=== PATIENT | male | born 1975 | race Caucasian/White ===

== ENCOUNTER 2016-10-24 20:09 | Emergency (ER) | payer OTHER ==
[~2016-10-24] VITALS: Ht 170.2 cm; Wt 86.5 kg
[~2016-10-24 20:09] MED LIST: ATOR-24 PO; METO25TA56 PO
[2016-10-24 20:15] VITALS: TEMP 37; Ht 170.2 cm; Wt 86.5 kg
[2016-10-24] MEDS ORDERED: OXYCODONE HCL IR 5 MG TAB (IMMEDIATE RELEASE) PO STA (22:19)
[2016-10-24] MEDS ORDERED: OXYCODONE IR HOME PACK PO ONE (22:30)
[2016-10-24] MEDS ORDERED: SEPTRA DS HOME PACK 1 EA VIAL PO ONE (22:30)
[2016-10-24] MEDS ORDERED: XYLOCAINE 1%/SOD BICARB 20 ML VIAL INFIL ONE (22:30)
[2016-10-24] MEDS ORDERED: CEPHALEXIN 500MG HOME PACK 1 EA BTL PO ONE (22:30)
[2016-10-24] MEDS ORDERED: CEPH500C2 PO (22:47)
[2016-10-24] MEDS ORDERED: SULF800T23 PO (22:47)
--- NOTE | 2016-10-24 23:24 | EMERGENCY ROOM VISIT NOTE ---
History First contact with patient: 22:16 Chief Complaint: LEG PAIN,LEG INJURY Stated Complaint: LARGE PAINFUL LUMP IN GROIN History of Present Illness The patient is a 41 year old male who presents to the Emergency Room with complaints of left groin pain and swelling for the past few days. Patient denies penile Pain, testicular pain, fever, chills, nausea, vomiting, diarrhea, abdominal pain, back pain, risk for STIs, lightheadedness or dizziness. No history of MRSA. No IV drug abuse. Review of Systems See HPI for pertinent positives & negatives. A total of 6 systems reviewed and were otherwise negative. Past Medical/Surgical History Medical Problems: (1) Acute epididymitis (2) Acute urinary tract infection (3) Alcohol abuse (4) Back pain (5) Benign hypertension (6) Bipolar disorder (7) Calculus of kidney and ureter (8) Dehydration (9) Dizziness (10) Epididymal cyst (11) Epididymitis (12) Flank pain (13) Gastroesophageal reflux disease (14) Headache (15) Headache (16) Hypokalemia (17) Insertion of stent into ureter (18) Kidney cysts (19) Lung mass (20) Migraine (21) Palpitations (22) Strain of thoracic region (23) Testicular pain (24) Testicular pain (25) Tobacco user (26) Ulcer (27) Vomiting (28) Vomiting Family History Heart disease Social History Smoking Status: Current Every Day Smoker Alcohol Use: occasionally Drug Use: none Marital Status: Housing Status: lives alone Occupation Status: disabled Current/Historical Medications Scheduled Aspirin (Aspirin Ec), 81 MG PO DAILY Atorvastatin (Atorvastatin Calcium), 40 MG PO DAILY Cephalexin Monohydrate (Keflex), 500 MG PO QID Metoprolol Succinate (Metoprolol Succinate ER), 25 MG PO DAILY Sulfa/Trimethoprim (Bactrim Ds 800MG/160MG), 1 TAB PO BID Allergies Coded Allergies: Naproxen (Verified Allergy, Intermediate, hives, 10/24/16) Gabapentin (Verified Allergy, Mild, hives, 10/24/16) Acellular Pertussis (Unverified Allergy, Unknown, CELLULITIS, 10/24/16) Aluminum Phosphate (Unverified Allergy, Unknown, CELLULITIS, 10/24/16) Diphtheria Toxoid (Unverified Allergy, Unknown, CELLULITIS, 10/24/16) Penicillins (Verified Allergy, Unknown, RASH, 10/24/16) Phenoxyethanol (Unverified Allergy, Unknown, CELLULITIS, 10/24/16) Tetanus Toxoid (Unverified Allergy, Unknown, CELLULITIS, 10/24/16) Tramadol (Verified Allergy, Unknown, HIVES, 10/24/16) Physical Exam Vital Signs Date Time Temp Pulse Resp B/P Pulse Ox O2 Delivery O2 Flow Rate FiO2 10/24/16 22:15 76 18 127/83 97 Room Air 10/24/16 20:15 37.0 90 16 149/101 97 Room Air Physical Exam VITALS: Vitals are noted on the nurse's note and reviewed by myself. Vital signs stable. GENERAL: Pleasant male, in no acute distress, nondiaphoretic, well-developed well-nourished. SKIN: Capillary reflex less than 2 seconds. HEENT: Normocephalic. PERRLA. EOMI. Nares patent. Mucous membranes moist. Neck is supple without nuchal rigidity. HEART: Regular rate and rhythm without murmurs gallops or rubs. LUNGS: Clear to auscultation bilaterally without wheezes, rales or rhonchi. No retractions or accessory muscle use. ABDOMEN: Positive bowel sounds x 4. Normal tympanic percussion. Soft, nontender, without masses or organomegaly. Vides sign negative. No guarding or rebound tenderness. exam: Left groin with palpable abscess and surrounding cellulitis 2 cm x 3 cm without testicular or penile pain or perineal infection. Tenant Coordinator present MUSCULOSKELETAL: No gross musculoskeletal defects. No pedal edema. No calf tenderness. NEURO: Patient was alert and oriented to person place and time. Normal sensation to light and sharp touch. No focal neurological deficits. Medical Decision & Procedures Medications Administered Medications (Trade) Dose Ordered Sig/Katie Route Start Time Stop Time Status Last Admin Dose Admin Cephalexin Monohydrate (Keflex 500MG Home Pack) 1 homepack NOW ONCE PO 10/24/16 22:30 10/24/16 22:31 DC 10/24/16 22:30 1 HOMEPACK Trimethoprim/ Sulfamethoxazole (Sulfameth/ Trimeth Ds 800/ 160MG Home Pack) 1 homepack UD ONCE PO 10/24/16 22:30 10/24/16 22:31 DC 10/24/16 22:29 1 HOMEPACK Oxycodone HCl (Roxicodone Immediate Rel 5MG Home Pack) 1 homepack UD ONCE PO 10/24/16 22:30 10/24/16 22:31 DC 10/24/16 22:30 1 HOMEPACK Oxycodone HCl (Roxicodone Immediate Rel Tab) 5 mg NOW STAT PO 10/24/16 22:19 10/24/16 22:21 DC 10/24/16 22:29 5 MG Procedure Incision & Drainage Indication: Abscess. Location: left groin Verbal consent was obtained after the risks and benefits were explained, including but not limited to bleeding, scarring, infection, pain, and bone/joint /nerve damage. At this time, the risks of the procedure are less than the risks of NOT performing the procedure. A time out was taken and the correct patient and site identified. The skin was prepped with betadine and a sterile field set. The wound was anesthetized with 3 ml of 1% lidocaine without epinephrine. The abscess cavity was entered with a number 11 blade and purulent material expressed. Copious irrigation was performed using NSS. The wound was explored for foreign bodies and none found. Debridement was not performed. Packing placed and a sterile dressing applied. Detailed wound care instructions and signs and symptoms of worsening infection reviewed with the patient. No complications and the patient tolerated the procedure well. ED Course Prior records reviewed and summarized as above. Triage Nursing notes reviewed. The patient's history was concerning for swelling and redness of the skin. Differential diagnosis: Etiologies such as cellulitis, abscess, MRSA infection, DVT, necrotizing fasciitis, dermatitis, drug eruption, as well as others were entertained.. Physical examination: The physical examination was consistent with cellulitis ER treatment provided: BD, Keflex On reassessment the patient felt better. Diagnostics interpreted by me: The labs revealed wound culture pending This appears to be isolated abscess with surrounding cellulitis. By the evaluation outlined above emergent etiologies such as necrotizing fasciitis, DVT, as well as others were deemed relatively unlikely. I&D as above. Patient was advised to return to the ER 2 days for repacking. He is advised to return to the immediate for fevers, spreading redness, worsening signs or symptoms or as needed. The pt informed about the findings as listed above. All questions were answered and pleased with the treatment. Return instructions were outlined and the patient was discharged in stable condition. Outpatient prescription management: BD, Keflex Referral: The patient was referred back to ER or primary care physician for follow-up in 2 to 3 days for a recheck of the current condition. Medical Decision as above Impression Primary Impression: Abscess of left groin Departure Information Dispostion Home / Self-Care Condition GOOD Prescriptions Sulfa/Trimethoprim (Bactrim Ds 800MG/160MG) Tab 1 TAB PO BID for 9 Days, #18 TAB Prov: Gail Nunez .ARGENIS 10/24/16 Cephalexin Monohydrate (KEFLEX) 500 Mg Cap 500 MG PO QID for 9 Days, #36 CAP Prov: Gail Nunez .ARGENIS 10/24/16 Forms HOME CARE DOCUMENTATION FORM, IMPORTANT VISIT INFORMATION Patient Instructions [facility], ED Abscess IandD Additional Instructions Leave inner packing in place. Frequent replace the outer packing. Cephalexin(Keflex) 500mg: Take one pill four times daily for 10 days for your skin infection. All antibiotics can cause diarrhea. If this occurs and you feel worse or it does not resolve in 1-2 days follow up with your doctor or return to the Emergency Department as this could be signs of serious underlying problems. Any medication can cause an allergic reaction, stop the pills immediately and return to the ER for rash, hives, breathing difficulties, or swelling. Trimethoprim-Sulfamethoxazole(Bactrim DS): Take one pill twice daily for 10 days for your skin infection. All antibiotics can cause diarrhea. If this occurs and you feel worse or it does not resolve in 1-2 days follow up with your doctor or return to the Emergency Department as this could be signs of serious underlying problems. Any medication can cause an allergic reaction, stop the pills immediately and return to the ER for rash, hives, breathing difficulties, or swelling. Ibuprofen(Motrin, Advil) may be used for fever or pain. Use 600mg every six hours as needed. Take with food. Avoid using more than 2400mg in a 24 hour period. Do not use 2400mg per day for more than three consecutive days without physician direction. Prolonged inappropriate use can lead to stomach upset or ulcers. (AND/OR) Acetaminophen(Tylenol) may be used for fever or pain. Use 1000mg every six hours as needed. Avoid using more than 3000mg in a 24 hour period. Rest and drink plenty of fluids. Continue current medications. Return to the ER for severe pain, persistent fevers, spreading redness, or any worsening of your condition. Follow up in the ER within 2-3 days for a recheck of the current condition and repacking of your abscess.
[2016-10-24 23:38] VITALS: BP 127/94; PULSE 78; O2SAT 98
--- NOTE | 2016-10-30 15:55 | Pharmacy Progress Note ---
ED Pharmacist Progress Note Date of Service: Oct 30, 2016. Patient's L groin abscess culture from 10/24/16 is growing 2 organisms : Group B beta-strep and Prevotella biva. On 10/24 the I&D of abscess was performed and patient was discharged with Rx's for Bactrim DS and Keflex for 9 days. He returned on 10/27 for a wound recheck - and the wound was reported to be healing well, was repacked and redressed and he was to return again in 2-3 days. Based upon the culture results it is possible that the current ABX therapy is inadequate. Group B beta-strep is intrinsically resistant to SMX-TMP but could be sensitive to the Keflex, although our lab does not report sensitivities to 1st or second gen cephs. The Prevotella is an anaerobe that would be resistant to 1st generation cephalosporins. This organism would be covered well by Augmentin however the patient has a penicillin allergy. Clindamycin would be an acceptable alternative. I called (and left a message for the patient to call back for a clinical checkup via phone. If he is not doing better clinically would recommend change ABX to Clindamycin + Keflex or possibly Clindamycin + Levofloxacin. It is unlikely the Bactrim is providing any coverage for the two cultured organisms.
--- NOTE | 2016-10-31 12:18 | Pharmacy Progress Note ---
ED Pharmacist Culture FollowUp Date of Service: Oct 31, 2016. Called again and left a message ([phone]) as patient has not returned for f /u. A f/u clinical checkup via phone is desired to determine if change in abx therapy should be considered. Oct 30, 2016. Patient's L groin abscess culture from 10/24/16 is growing 2 organisms : Group B beta-strep and Prevotella biva. On 10/24 the I&D of abscess was performed and patient was discharged with Rx's for Bactrim DS and Keflex for 9 days. He returned on 10/27 for a wound recheck - and the wound was reported to be healing well, was repacked and redressed and he was to return again in 2-3 days. Based upon the culture results it is possible that the current ABX therapy is inadequate. Group B beta-strep is intrinsically resistant to SMX-TMP but could be sensitive to the Keflex, although our lab does not report sensitivities to 1st or second gen cephs. The Prevotella is an anaerobe that would be resistant to 1st generation cephalosporins. This organism would be covered well by Augmentin however the patient has a penicillin allergy. Clindamycin would be an acceptable alternative. I called (and left a message for the patient to call back for a clinical checkup via phone. If he is not doing better clinically would recommend change ABX to Clindamycin + Keflex or possibly Clindamycin + Levofloxacin. It is unlikely the Bactrim is providing any coverage for the two cultured organisms.
--- NOTE | 2016-11-01 16:02 | Pharmacy Progress Note ---
ED Pharmacist Culture FollowUp Date of Service: Nov 01, 2016. I spoke with the patient on the phone today. He states that the wound packing came out on it's own so he did not return for f/u ED visit. He states the wound is healing nicely and is not concerned. He is still taking the prescribed antibiotics. No action required at this time. Oct 31, 2016. Called again and left a message ([phone]) as patient has not returned for f /u. A f/u clinical checkup via phone is desired to determine if change in abx therapy should be considered. Oct 30, 2016. Patient's L groin abscess culture from 10/24/16 is growing 2 organisms : Group B beta-strep and Prevotella biva. On 10/24 the I&D of abscess was performed and patient was discharged with Rx's for Bactrim DS and Keflex for 9 days. He returned on 10/27 for a wound recheck - and the wound was reported to be healing well, was repacked and redressed and he was to return again in 2-3 days. Based upon the culture results it is possible that the current ABX therapy is inadequate. Group B beta-strep is intrinsically resistant to SMX-TMP but could be sensitive to the Keflex, although our lab does not report sensitivities to 1st or second gen cephs. The Prevotella is an anaerobe that would be resistant to 1st generation cephalosporins. This organism would be covered well by Augmentin however the patient has a penicillin allergy. Clindamycin would be an acceptable alternative. I called (and left a message for the patient to call back for a clinical checkup via phone. If he is not doing better clinically would recommend change ABX to Clindamycin + Keflex or possibly Clindamycin + Levofloxacin. It is unlikely the Bactrim is providing any coverage for the two cultured organisms.
[2017-07-03] MEDS ORDERED: CLON0.5T3 PO (16:25)
[2017-07-03] MEDS ORDERED: DXY100 PO (16:25)
[2017-07-03] MEDS ORDERED: BUSP15TA70 PO (16:25)
[2017-07-03] MEDS ORDERED: NICO14DI5 TD (16:25)
== END 2016-10-24 22:38 | disposition home or self-care (01) ==
LOC: C.EDB 20:10 → C.EDC 22:38
DX: L02.214 Cutaneous abscess of groin (principal); F17.200 Nicotine dependence, unspecified, uncomplicated; I10 Essential (primary) hypertension; F31.9 Bipolar disorder, unspecified; K21.9 Gastro-esophageal reflux disease without esophagitis; Z79.82 Long term (current) use of aspirin

== ENCOUNTER 2016-10-27 04:56 | Emergency (ER) | payer OTHER ==
[~2016-10-27] VITALS: Ht 170.2 cm; Wt 85.6 kg
[~2016-10-27 04:56] MED LIST changes: -ATOR-24 PO; +CEPH500C2 PO; -METO25TA56 PO; +SULF800T23 PO
[2016-10-27 04:59] VITALS: TEMP 36.5; Ht 170.2 cm; Wt 85.6 kg
--- NOTE | 2016-10-27 05:12 | EMERGENCY ROOM VISIT NOTE ---
ED Visit Note First contact with patient: 05:01 CHIEF COMPLAINT: Wound check HISTORY OF PRESENT ILLNESS: This 41-year-old patient presents to the emergency department for a recheck of left groin abscess that was I&D the other day by myself and started on antibiotics. Overall it is healing nicely. Previous care outlined has been followed without difficulty. REVIEW OF SYSTEMS: A 6 system review of systems was completed with positives and pertinent negatives listed in the HPI. ALLERGIES: Tetanus, reviewed MEDICATIONS: Reviewed PMH: Unchanged from previous visit.Medical Problems: (1) Acute epididymitis Status: Resolved (2) Acute urinary tract infection Status: Resolved (3) Alcohol abuse Status: Resolved (4) Back pain Status: Resolved (5) Benign hypertension Status: Chronic (6) Bipolar disorder Status: Chronic (7) Calculus of kidney and ureter Status: Resolved (8) Dehydration Status: Resolved (9) Dizziness Status: Resolved (10) Epididymal cyst Status: Resolved (11) Epididymitis Status: Resolved (12) Flank pain Status: Resolved (13) Gastroesophageal reflux disease Status: Chronic (14) Headache Status: Resolved (15) Headache Status: Resolved (16) Hypokalemia Status: Resolved (17) Insertion of stent into ureter Permanent Comment: L ureteral stent Dr. Guajardo 03/21/13 Status: Resolved (18) Kidney cysts Status: Resolved (19) Lung mass Permanent Comment: CT chest [facility] 03/01/13 3 mm RLL and 5 mm LLL nodules f/u recommended Status: Chronic (20) Migraine Status: Resolved (21) Palpitations Status: Chronic (22) Strain of thoracic region Status: Resolved (23) Testicular pain Status: Resolved (24) Testicular pain Status: Resolved (25) Tobacco user Status: Chronic (26) Ulcer Status: Resolved (27) Vomiting Status: Resolved (28) Vomiting Status: Resolved PHYSICAL EXAM: Vital Signs reviewed, see Nurse's notes. Patient is afebrile, vital signs stable. GENERAL: White male, awake, alert, well appearing, no acute distress SKIN: Inspection of the left groin reveals healing abscess was IND. MUSCULOSKELETAL: Left leg groin area without surrounding erythema or edema NEURO: No sensory or motor deficits noted. EMERGENCY DEPARTMENT COURSE AND DECISION MAKING: I examined the patient. The patient presented with an isolated wound as above. . The wound is healing well. ER Treatment: The wound was repacked and redressed. Patient was advised to return in 2-3 days for wound repacking and reevaluation. He was advised to continue the antibiotics. Discharge instructions reviewed. Discharged in stable condition. DIAGNOSIS: Healing left groin abscess TREATMENT PLAN: As below Problem List Medical Problems: (1) Acute epididymitis Status: Resolved (2) Acute urinary tract infection Status: Resolved (3) Alcohol abuse Status: Resolved (4) Back pain Status: Resolved (5) Benign hypertension Status: Chronic (6) Bipolar disorder Status: Chronic (7) Calculus of kidney and ureter Status: Resolved (8) Dehydration Status: Resolved (9) Dizziness Status: Resolved (10) Epididymal cyst Status: Resolved (11) Epididymitis Status: Resolved (12) Flank pain Status: Resolved (13) Gastroesophageal reflux disease Status: Chronic (14) Headache Status: Resolved (15) Headache Status: Resolved (16) Hypokalemia Status: Resolved (17) Insertion of stent into ureter Permanent Comment: L ureteral stent Dr. Guajardo 03/21/13 Status: Resolved (18) Kidney cysts Status: Resolved (19) Lung mass Permanent Comment: CT chest [facility] 03/01/13 3 mm RLL and 5 mm LLL nodules f/u recommended Status: Chronic (20) Migraine Status: Resolved (21) Palpitations Status: Chronic (22) Strain of thoracic region Status: Resolved (23) Testicular pain Status: Resolved (24) Testicular pain Status: Resolved (25) Tobacco user Status: Chronic (26) Ulcer Status: Resolved (27) Vomiting Status: Resolved (28) Vomiting Status: Resolved Current/Historical Medications Scheduled Aspirin (Aspirin Ec), 81 MG PO DAILY Atorvastatin (Atorvastatin Calcium), 40 MG PO DAILY Cephalexin Monohydrate (Keflex), 500 MG PO QID Metoprolol Succinate (Metoprolol Succinate ER), 25 MG PO DAILY Sulfa/Trimethoprim (Bactrim Ds 800MG/160MG), 1 TAB PO BID Allergies Coded Allergies: Naproxen (Verified Allergy, Intermediate, hives, 10/27/16) Gabapentin (Verified Allergy, Mild, hives, 10/27/16) Acellular Pertussis (Unverified Allergy, Unknown, CELLULITIS, 10/27/16) Aluminum Phosphate (Unverified Allergy, Unknown, CELLULITIS, 10/27/16) Diphtheria Toxoid (Unverified Allergy, Unknown, CELLULITIS, 10/27/16) Penicillins (Verified Allergy, Unknown, RASH, 10/27/16) Phenoxyethanol (Unverified Allergy, Unknown, CELLULITIS, 10/27/16) Tetanus Toxoid (Unverified Allergy, Unknown, CELLULITIS, 10/27/16) Tramadol (Verified Allergy, Unknown, HIVES, 10/27/16) Vital Signs Date Time Temp Pulse Resp B/P Pulse Ox O2 Delivery O2 Flow Rate FiO2 10/27/16 04:59 36.5 82 16 136/98 95 Room Air Departure Information Referrals No Doctor, Assigned (PCP) Patient Instructions [facility]
[2016-10-27 05:22] VITALS: BP 144/92; PULSE 80; O2SAT 95
[2017-07-03] MEDS ORDERED: DXY100 PO (16:25)
[2017-07-03] MEDS ORDERED: NICO14DI5 TD (16:25)
[2017-07-03] MEDS ORDERED: BUSP15TA70 PO (16:25)
[2017-07-03] MEDS ORDERED: CLON0.5T3 PO (16:25)
== END 2016-10-27 05:22 | disposition home or self-care (01) ==
LOC: C.EDB 04:57 → C.EDA 05:22
DX: L02.214 Cutaneous abscess of groin (principal); I10 Essential (primary) hypertension; F31.9 Bipolar disorder, unspecified; K21.9 Gastro-esophageal reflux disease without esophagitis; Z79.82 Long term (current) use of aspirin

== ENCOUNTER → 2017-01-10 | Outpatient (CLI) | payer OTHER ==
[~2017-01-10] MED LIST changes: +ASPI81TA28 PO; +AZIT250T PO; +BUSP15TA70 PO; -CEPH500C2 PO; +CIPR-255 PO; +CLON0.5T3 PO; +DXY100 PO; +LPT40 PO; +METR-163 PO; +NICO14DI5 TD; +NTRGSL/4 UT; +PRED50TA PO; -SULF800T23 PO; +TPRSR/25 PO
--- NOTE | 2017-01-10 13:58 | DIAGNOSTIC IMAGING REPORT ---
CERVICAL SPINE SERIES INCLUDING FLEXION AND EXTENSION VIEWS (7 VIEWS) CLINICAL HISTORY: NECK PAIN COMPARISON STUDY: No previous studies for comparison. FINDINGS: The prevertebral soft tissues are normal. No fractures or subluxations are visualized. There are mild degenerative changes at the C6-7 level. There is no instability on flexion or extension. IMPRESSION: Mild degenerative changes the C6-7 level. No fractures or subluxations. No evidence of instability on flexion or extension. Electronically signed by: Rishi Ledezma M.D. 01/10/2017 1:56 PM Dictated Date/Time: 01/10/2017 1:55 PM
== END | disposition home or self-care (01) ==
LOC: C.RDSM 13:02
PROVIDERS: ATTEND Orthopaedic Surgery Sports Medicine
DX: M25.511 Pain in right shoulder (principal); M25.512 Pain in left shoulder; M47.812 Spondylosis without myelopathy or radiculopathy, cervical region

== ENCOUNTER → 2017-01-16 | Outpatient (CLI) | payer OTHER ==
--- NOTE | 2017-01-16 19:38 | DIAGNOSTIC IMAGING REPORT ---
MRI OF THE CERVICAL SPINE WITHOUT CONTRAST CLINICAL HISTORY: Neck pain with left-sided radiculopathy. COMPARISON: Cervical spine CT March 20, [address] May 22, 2015. TECHNIQUE: Utilizing a 1.5 Michelle magnet and dedicated coil, multiplanar, multiecho imaging of the cervical spine was performed without IV contrast. FINDINGS: There is straightening of the normal cervical lordosis. Vertebral body heights are maintained. There is no suspicious marrow replacement. There are hemangiomas within the T2 and T3 vertebral bodies. Cervical cord signal and caliber are normal although this exam is mildly compromised by motion artifact. There is no intracanalicular mass or fluid collection. Paravertebral soft tissues are unremarkable. C2-C3: The central canal and neural foramen are patent. C3-C4: The central canal and neural foramen are patent. C4-C5: The central canal and neural foramen are patent. C5-C6: The central canal and neural foramen are patent. C6-C7: Disc bulge with small central disc protrusion is noted. There is mild narrowing of the central canal. The right neural foramen is patent. There is moderate to severe narrowing of the left neural foramen due to disc osteophyte complex and uncovertebral hypertrophy. C7-T1: Central canal and neural foramen are patent. IMPRESSION: 1. Disc bulge with small central disc protrusion at C6-C7 that results in mild narrowing of the central canal. Moderate to severe left neural foraminal narrowing at C6-C7 due to disc osteophyte complex and uncovertebral hypertrophy. 2. Otherwise, unremarkable MRI of the cervical spine. Electronically signed by: Rashad Sotelo M.D. 01/16/2017 7:36 PM Dictated Date/Time: 01/16/2017 7:31 PM
== END ==
LOC: C.MRI 17:35
PROVIDERS: ATTEND Orthopaedic Surgery Sports Medicine
DX: M54.2 Cervicalgia (principal); M54.10 Radiculopathy, site unspecified

== ENCOUNTER 2017-01-23 04:51 | Emergency (ER) | payer OTHER ==
[~2017-01-23] VITALS: Ht 170.2 cm; Wt 80.2 kg
[2017-01-23 04:54] VITALS: Ht 170.2 cm; Wt 80.2 kg
[2017-01-23] MEDS ORDERED: ONDANSETRON 4MG OD TAB PO ONE (05:30)
[2017-01-23] MEDS ORDERED: DEXAMETHASONE SOD INJ 10 MG/ML VIAL IM ONE (05:30)
[2017-01-23] MEDS ORDERED: HYDROmorphone INJ 1 MG/ML SYR IM ONE (05:30)
[2017-01-23] MEDS ORDERED: PRED50TA PO (06:02)
--- NOTE | 2017-01-23 06:02 | EMERGENCY ROOM VISIT NOTE ---
ED Visit Note First contact with patient: 05:00 Chief Complaint: Neck, Back, LEFT Shoulder and Arm Pain History of Present Illness: Patient is a 41-year-old male who presents to the emergency department this morning for evaluation of his neck pain and LEFT shoulder and arm pain. He reports a history of ongoing back pain issues for which she follows with Dr. Eugene. He reports having an MRI performed 1 week ago. He is scheduled to see a neurosurgeon next for ongoing symptoms. 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 He reports pain that radiates down the LEFT arm. He reports pain with range of motion. He denies any trauma to the neck. Patient rates his current discomfort as a 10/10. He is tried nothing [id number]-[id number] for symptoms to this point. He denies any headaches, dizziness, lightheadedness, nausea, vomiting, elbow pain, forearm pain, or wrist pain. Medications: Reviewed and discussed with the patient. Allergies: Aluminum phosphate, diphtheria toxoid, naproxen, tetanus toxoid, acellular pertussis, gabapentin, tramadol, Phenoxyethanol, Penicillins PMH: As above SHx: Patient is a 41-year-old male who lives locally. ROS: All pertinent positive and negative review of systems are appropriately documented in the History of Present Illness. Physical Exam: VITAL SIGNS - Vital signs and nursing notes were reviewed. GENERAL - 41-year-old male appearing his stated age who is in no acute distress. Communicates well with provider and answers questions appropriately. HEAD - Normocephalic, Atraumatic. No Vasquez's Sign or Raccoon's Eyes. No depressed skull fractures palpable. EYES - PERRL with EOMI bilaterally. Sclera anicteric. Palpebral conjunctiva pink and moist with no injection noted. EARS - No deformities of external structures noted on gross examination bilaterally. No pain elicited with palpation of the tragus bilaterally. External auditory canals without discharge or otorrhea. Tympanic membranes pearly waller without retraction or bulging. NOSE - Midline and without cyanosis. No epistaxis or purulent drainage noted. Septum midline without deviation or septal hematoma noted. MOUTH/OROPHARYNX - Without perioral cyanosis. Buccal mucosa pink and moist and without leukoplakia. Tongue midline with equal elevation of palate bilaterally. No tonsillar hypertrophy, erythema, or exudates noted. NECK - Neck with limited ROM secondary to patient discomfort. No cervical spinous process tenderness to palpation. Moderate paraspinal muscle tenderness to palpation to the LEFT sided musculature. No lymphadenopathy noted. Moderate pain through range of motion appreciated. Mild pain elicited with axial load applied to the head. EXTREMITIES - +4/5 strength appreciated LEFT versus right of the upper extremities. +3/5 radial pulses palpated throughout. FROM with no tremors, fasciculations, or clonus noted on PROM throughout. NEUROLOGIC - Cranial nerves II through XII grossly intact. Sensory intact to light and sharp touch throughout. Patient able to perform rapid alternating movements appropriately. PSYCH - A&Ox3 and cooperates fully with examiner. Pt is very pleasant and interacts well with examiner. ED Course: Patient was seen and evaluated by myself. Outpatient MRI results ordered one week ago were reviewed. I had a lengthy discussion with the patient regarding symptoms and management. Patient was provided 1 mg Dilaudid, 10 mg Decadron, and 4 mg Zofran for his pain. He was made aware that he would not receive any narcotic prescriptions from the emergency department. He is currently following with orthopedic surgery. He was encouraged to contact their office later this morning for a prescription at their discretion. He was placed on prednisone for home. The patient was educated on worrisome symptoms for return visit to the emergency department. Patient discharged home in good condition. In the evaluation and treatment of this patient, the following differential diagnoses were considered: Musculoskeletal Strain, Discitis, Cervical Spine Fracture, Cervical Spine Dislocation, Cervical Spine Subluxation, Cervical Spondylosis, Fibromyalgia, Osteoarthritis, Polymyalgia Rheumatica, Psychogenic Pain Disorder, Tumor of Soft Tissue or Spine. Impression: Acute exacerbation of chronic back pain Discharge Instructions: You have been treated in the Emergency Department for Neck Pain. You have received pain medicine in the emergency department which impairs your ability to operate a vehicle. It is illegal for you to drive after receiving these medicines. You have been prescribed Prednisone 50 mg to be taken orally once a day for the next 4 days. This is an anti-inflammatory medicine to be used to help minimize your symptoms. You should take the COMPLETE course of the medication. For pain control, you can use the following [id number]-lcv-[id number] medicines (if >12 yo): - Regular strength (325mg/tab) Tylenol (acetaminophen) 2 tabs every 4-6 hours as needed. Do not exceed 12 tablets in a 24 hour period. Avoid taking more than 4 grams (4000 mg) of Tylenol per day. This includes any other sources of acetaminophen you may take on a regular basis. - Regular strength (200 mg/tab) Advil (ibuprofen) 1-2 tabs every 4-6 hours as needed. Do not exceed a dose of 3200 mg per day. If this is an acute injury, ice can be applied to the area of pain for the first 3 days to help decrease pain and inflammation. After the first 3 days, a heating pad can be used over the area for continued soothing relief. Contact your orthopedic provider later today for recheck. Return to the Emergency Department if your current symptoms worsen despite treatment course outlined above, or if you develop any of the following symptoms : intractable pain despite aforementioned treatment course, facial droop, slurred speech, unilateral weakness, or worsening of her current symptoms. Problem List Medical Problems: (1) Acute epididymitis Status: Resolved (2) Acute urinary tract infection Status: Resolved (3) Alcohol abuse Status: Resolved (4) Back pain Status: Resolved (5) Benign hypertension Status: Chronic (6) Bipolar disorder Status: Chronic (7) Calculus of kidney and ureter Status: Resolved (8) Dehydration Status: Resolved (9) Dizziness Status: Resolved (10) Epididymal cyst Status: Resolved (11) Epididymitis Status: Resolved (12) Flank pain Status: Resolved (13) Gastroesophageal reflux disease Status: Chronic (14) Headache Status: Resolved (15) Headache Status: Resolved (16) Hypokalemia Status: Resolved (17) Insertion of stent into ureter Permanent Comment: L ureteral stent Dr. Guajardo 03/21/13 Status: Resolved (18) Kidney cysts Status: Resolved (19) Lung mass Permanent Comment: CT chest [facility] 03/01/13 3 mm RLL and 5 mm LLL nodules f/u recommended Status: Chronic (20) Migraine Status: Resolved (21) Palpitations Status: Chronic (22) Strain of thoracic region Status: Resolved (23) Testicular pain Status: Resolved (24) Testicular pain Status: Resolved (25) Tobacco user Status: Chronic (26) Ulcer Status: Resolved (27) Vomiting Status: Resolved (28) Vomiting Status: Resolved Current/Historical Medications Scheduled Aspirin (Aspirin Ec), 81 MG PO DAILY Atorvastatin (Atorvastatin Calcium), 40 MG PO DAILY Metoprolol Succinate (Metoprolol Succinate ER), 25 MG PO DAILY Prednisone (Prednisone), 50 MG PO DAILY Allergies Coded Allergies: Naproxen (Verified Allergy, Intermediate, hives, 01/23/17) Gabapentin (Verified Allergy, Mild, hives, 01/23/17) Acellular Pertussis (Unverified Allergy, Unknown, CELLULITIS, 01/23/17) Aluminum Phosphate (Unverified Allergy, Unknown, CELLULITIS, 01/23/17) Diphtheria Toxoid (Unverified Allergy, Unknown, CELLULITIS, 01/23/17) Penicillins (Verified Allergy, Unknown, RASH, 01/23/17) Phenoxyethanol (Unverified Allergy, Unknown, CELLULITIS, 01/23/17) Tetanus Toxoid (Unverified Allergy, Unknown, CELLULITIS, 01/23/17) Tramadol (Verified Allergy, Unknown, HIVES, 01/23/17) Vital Signs Date Time Temp Pulse Resp B/P Pulse Ox O2 Delivery O2 Flow Rate FiO2 01/23/17 06:40 36.5 96 20 145/90 96 01/23/17 04:54 36.5 96 20 151/102 96 Room Air Medications Administered Medications (Trade) Dose Ordered Sig/Katie Route Start Time Stop Time Status Last Admin Dose Admin Hydromorphone HCl (Dilaudid Inj) 1 mg NOW ONCE IM 01/23/17 05:30 01/23/17 05:31 DC 01/23/17 05:43 1 MG Dexamethasone Sodium Phosphate (Decadron Inj) 10 mg NOW ONCE IM 01/23/17 05:30 01/23/17 05:31 DC 01/23/17 05:42 10 MG Ondansetron HCl (Zofran Odt) 4 mg ONE ONCE PO 01/23/17 05:30 01/23/17 05:31 DC 01/23/17 05:42 4 MG Departure Information Impression Primary Impression: Neck pain Dispostion Home / Self-Care Condition GOOD Prescriptions Prednisone (Prednisone) 50 Mg Tab 50 MG PO DAILY for 4 Days, #4 TAB Prov: Joseph June, ARGENIS 01/23/17 Referrals No Doctor, Assigned (PCP) Ok Eugene MD Patient Instructions ED Neck Back Pain General, My [facility] Additional Instructions You have been treated in the Emergency Department for Neck Pain. You have received pain medicine in the emergency department which impairs your ability to operate a vehicle. It is illegal for you to drive after receiving these medicines. You have been prescribed Prednisone 50 mg to be taken orally once a day for the next 4 days. This is an anti-inflammatory medicine to be used to help minimize your symptoms. You should take the COMPLETE course of the medication. For pain control, you can use the following eedq-knl-kyrmmmz medicines (if >12 yo): - Regular strength (325mg/tab) Tylenol (acetaminophen) 2 tabs every 4-6 hours as needed. Do not exceed 12 tablets in a 24 hour period. Avoid taking more than 4 grams (4000 mg) of Tylenol per day. This includes any other sources of acetaminophen you may take on a regular basis. - Regular strength (200 mg/tab) Advil (ibuprofen) 1-2 tabs every 4-6 hours as needed. Do not exceed a dose of 3200 mg per day. If this is an acute injury, ice can be applied to the area of pain for the first 3 days to help decrease pain and inflammation. After the first 3 days, a heating pad can be used over the area for continued soothing relief. Contact your orthopedic provider later today for recheck. Return to the Emergency Department if your current symptoms worsen despite treatment course outlined above, or if you develop any of the following symptoms : intractable pain despite aforementioned treatment course, facial droop, slurred speech, unilateral weakness, or worsening of her current symptoms.
[2017-01-23 06:40] VITALS: BP 145/90; PULSE 96; TEMP 36.5; O2SAT 96
[2017-07-03] MEDS ORDERED: NICO14DI5 TD (16:25)
[2017-07-03] MEDS ORDERED: DXY100 PO (16:25)
[2017-07-03] MEDS ORDERED: CLON0.5T3 PO (16:25)
[2017-07-03] MEDS ORDERED: BUSP15TA70 PO (16:25)
[2017-08-13] MEDS ORDERED: CLON0.5T3 PO (22:07)
== END 2017-01-23 06:41 | disposition home or self-care (01) ==
LOC: C.EDB 04:52
DX: M54.2 Cervicalgia (principal); M54.5 Low back pain; G89.29 Other chronic pain; I10 Essential (primary) hypertension; F31.9 Bipolar disorder, unspecified; Z87.442 Personal history of urinary calculi; K21.9 Gastro-esophageal reflux disease without esophagitis; Z72.0 Tobacco use; Z79.82 Long term (current) use of aspirin; Z79.899 Other long term (current) drug therapy

== ENCOUNTER 2017-03-06 01:20 | Emergency (ER) | payer OTHER ==
[~2017-03-06] VITALS: Ht 170.2 cm; Wt 77.2 kg
[2017-03-06 01:24] VITALS: BP 132/85; PULSE 99; TEMP 36.9; O2SAT 97; Ht 170.2 cm; Wt 77.2 kg
[2017-03-06] MEDS ORDERED: SODIUM CHLORIDE 0.9% 1000ML 1,000 ML IV STA ×2 (01:29)
[2017-03-06] MEDS ORDERED: METR-163 PO (01:36)
[2017-03-06] MEDS ORDERED: CIPR-255 PO (01:36)
[2017-03-06] MEDS ORDERED: ONDANSETRON INJ 2 MG/ML 2 ML VIAL IV STA (01:41)
[2017-03-06] MEDS ORDERED: MoRPHine SULFATE 4 MG/ML 1 ML CARP\\VIAL IV STA (01:41)
[2017-03-06] MEDS ORDERED: OPTIRAY 320 IV PRN (01:45)
[2017-03-06 01:47] LABS: BASO % 0.2 %; BASO ABS # 0.03 K/uL (0-0.2); COMPLETE YES; EOS % 1.9 %; HEMATOCRIT 43.6 % (42-52); IG% 0.3 %; LYMPH % 14.8 %; MEAN CORPUSCULAR HEMOGLOBIN 30.8 pg (25-34); MEAN CORPUSCULAR HGB CONC 34.6 g/dl (32-36); MEAN PLATELET VOLUME 8.9 fL (7.4-10.4); MONO % 6.3 %; NEUT % 76.5 %; PLATELET COUNT 349 K/uL (130-400); WHITE BLOOD COUNT 18.21 K/uL (4.8-10.8)
[2017-03-06 02:00] LABS: ISTAT CREATININE 0.9 mg/dl (0.6-1.3); ISTAT HEMOGLOBIN 15.3 g/dl (14.0-18.0); ISTAT IONIZED CALCIUM 1.19 mmol/l (1.12-1.32)
[2017-03-06] MEDS ORDERED: CEPHALEXIN 500MG HOME PACK 1 EA BTL PO ONE (03:02)
--- NOTE | 2017-03-06 03:10 | EMERGENCY ROOM VISIT NOTE ---
History First contact with patient: 01:26 Chief Complaint: HIP PAIN Stated Complaint: SEVERE HIP,LEG AND ADOMINAL PAIN S/P SURGERY 02/07 History of Present Illness The patient is a 41 year old male who presents to the Emergency Room with complaints of left lower quadrant abdominal pain for the past days steadily getting worse described as aching, ranging in severity 7 out of 10. Nothing makes it better or worse. One month ago he had neck surgery. Patient states they used part of his pelvic bone as a graft for his neck surgery. Patient denies chest pain, dyspnea, fever, chills, cough, congestion, vomiting, diarrhea , penile pain, testicular pain, urinary symptoms. Patient states his neck surgery feels fine. No history of similar symptoms in the past. No IV drug abuse. Patient states the incision site is slightly erythematous. Review of Systems See HPI for pertinent positives & negatives. A total of 10 systems reviewed and were otherwise negative. Past Medical/Surgical History Medical Problems: (1) Acute epididymitis (2) Acute urinary tract infection (3) Alcohol abuse (4) Back pain (5) Benign hypertension (6) Bipolar disorder (7) Calculus of kidney and ureter (8) Dehydration (9) Dizziness (10) Epididymal cyst (11) Epididymitis (12) Flank pain (13) Gastroesophageal reflux disease (14) Headache (15) Headache (16) Hypokalemia (17) Insertion of stent into ureter (18) Kidney cysts (19) Lung mass (20) Migraine (21) Palpitations (22) Strain of thoracic region (23) Testicular pain (24) Testicular pain (25) Tobacco user (26) Ulcer (27) Vomiting (28) Vomiting Family History Heart disease Social History Smoking Status: Current Every Day Smoker Alcohol Use: occasionally Drug Use: none Marital Status: Housing Status: lives alone Occupation Status: disabled Current/Historical Medications Scheduled Aspirin (Aspirin Ec), 81 MG PO DAILY Atorvastatin (Atorvastatin Calcium), 40 MG PO DAILY Ciprofloxacin Hcl (Cipro), 500 MG PO BID Metoprolol Succinate (Metoprolol Succinate ER), 25 MG PO DAILY Metronidazole (Flagyl), 500 MG PO TID Allergies Coded Allergies: Naproxen (Verified Allergy, Intermediate, hives, 01/23/17) Gabapentin (Verified Allergy, Mild, hives, 01/23/17) Acellular Pertussis (Unverified Allergy, Unknown, CELLULITIS, 01/23/17) Aluminum Phosphate (Unverified Allergy, Unknown, CELLULITIS, 01/23/17) Diphtheria Toxoid (Unverified Allergy, Unknown, CELLULITIS, 01/23/17) Penicillins (Verified Allergy, Unknown, RASH, 01/23/17) Phenoxyethanol (Unverified Allergy, Unknown, CELLULITIS, 01/23/17) Tetanus Toxoid (Unverified Allergy, Unknown, CELLULITIS, 01/23/17) Tramadol (Verified Allergy, Unknown, HIVES, 01/23/17) Physical Exam Vital Signs Date Time Temp Pulse Resp B/P (MAP) Pulse Ox O2 Delivery O2 Flow Rate FiO2 03/06/17 01:24 36.9 99 19 132/85 97 Physical Exam VITALS: Vitals are noted on the nurse's note and reviewed by myself. Vital signs stable. GENERAL: White male, in no acute distress, nondiaphoretic, well-developed well- nourished. SKIN: The skin was without rashes, erythema, edema, or bruising. There is no tenting of the skin. Capillary reflex less than 2 seconds. HEAD: Normocephalic atraumatic. EARS: External auditory canals clear, tympanic membranes pearly waller without erythema or effusion bilaterally. EYES: Pupils equal round and reactive to light and accommodation. Conjunctivae without injection, sclerae without icterus. Extraocular movements intact. NOSE: Patent, turbinates without inflammation or discharge. MOUTH: Mucous membranes moist. Pharynx without erythema or exudate. Uvula midline. Airway patent. Tongue does not deviate. NECK: Supple without nuchal rigidity. No lymphadenopathy. No thyromegaly. Cervical spine is nontender. No JVD. HEART: Regular rate and rhythm without murmurs gallops or rubs. LUNGS: Clear to auscultation bilaterally without wheezes, rales or rhonchi. No dullness to percussion. No retractions or accessory muscle use. ABDOMEN: Positive bowel sounds x 4. Normal tympanic percussion. Soft, tender to palpation left lower quadrant, healing ridge slightly erythematous and tender to palpation with no palpable abscess, without masses or organomegaly. Vides sign negative. No guarding or rebound tenderness. No CVA tenderness MUSCULOSKELETAL: No muscle atrophy, erythema, or edema noted. No thoracic or lumbar tenderness on exam. Patient can ambulate without difficulties. Pelvis is stable. NEURO: Patient was alert and oriented to person place and time. Normal sensation to light and sharp touch. No focal neurological deficits. Medical Decision & Procedures Laboratory Results 03/06/17 01:36 Red Blood Count 4.90, Mean Corpuscular Volume 89.0, Mean Corpuscular Hemoglobin 30.8, Mean Corpuscular Hemoglobin Concent 34.6, Mean Platelet Volume 8.9, Neutrophils (%) (Auto) 76.5, Lymphocytes (%) (Auto) 14.8, Monocytes (%) (Auto) 6.3, Eosinophils (%) (Auto) 1.9, Basophils (%) (Auto) 0.2, Neutrophils # (Auto) 13.93, Lymphocytes # (Auto) 2.70, Monocytes # (Auto) 1.14, Eosinophils # (Auto) 0.35, Basophils # (Auto) 0.03 Test 03/06/17 01:36 03/06/17 01:43 03/06/17 01:47 White Blood Count 18.21 K/uL (4.8-10.8) Red Blood Count 4.90 M/uL (4.7-6.1) Hemoglobin 15.1 g/dL (14.0-18.0) Hematocrit 43.6 % (42-52) Mean Corpuscular Volume 89.0 fL (80-100) Mean Corpuscular Hemoglobin 30.8 pg (25-34) Mean Corpuscular Hemoglobin Concent 34.6 g/dl (32-36) Platelet Count 349 K/uL (130-400) Mean Platelet Volume 8.9 fL (7.4-10.4) Neutrophils (%) (Auto) 76.5 % Lymphocytes (%) (Auto) 14.8 % Monocytes (%) (Auto) 6.3 % Eosinophils (%) (Auto) 1.9 % Basophils (%) (Auto) 0.2 % Neutrophils # (Auto) 13.93 K/uL (1.4-6.5) Lymphocytes # (Auto) 2.70 K/uL (1.2-3.4) Monocytes # (Auto) 1.14 K/uL (0.11-0.59) Eosinophils # (Auto) 0.35 K/uL (0-0.5) Basophils # (Auto) 0.03 K/uL (0-0.2) RDW Standard Deviation 42.1 fL (36.4-46.3) RDW Coefficient of Variation 12.9 % (11.5-14.5) Immature Granulocyte % (Auto) 0.3 % Immature Granulocyte # (Auto) 0.06 K/uL (0.00-0.02) Bedside Lactic Acid Venous 0.90 mmol/L (0.90-1.70) Bedside Hemoglobin 15.3 g/dl (14.0-18.0) Bedside Hematocrit 45 % (42-52) Bedside Sodium 140 mEq/L (135-144) Bedside Potassium 3.6 mEq/L (3.3-5.0) Bedside Chloride 100 mEq/L (101-112) Bedside Total CO2 25 mEq/l (24-31) Anion Gap 19.0 mmol/L (16-25) Bedside Blood Urea Nitrogen 18 mg/dl (7-18) Bedside Creatinine 0.9 mg/dl (0.6-1.3) Bedside Glucose (other) 88 mg/dl (70-99) Bedside Ionized Calcium (Nalini) 1.19 mmol/l (1.12-1.32) Medications Administered Medications (Trade) Dose Ordered Sig/Katie Route Start Time Stop Time Status Last Admin Dose Admin Sodium Chloride 1,000 ml @ 999 mls/hr Q1H1M STAT IV 03/06/17 01:29 03/06/17 02:30 DC 03/06/17 01:42 999 MLS/HR Sodium Chloride 1,000 ml @ 125 mls/hr Q8H STAT IV 03/06/17 01:29 03/06/17 09:28 03/06/17 01:42 125 MLS/HR ED Course Prior records/ancillary studies reviewed. Triage Nursing notes reviewed. Additional history obtained from friend. The patient's history was concerning for abdominal pain. Differential diagnosis: Etiologies such as post surgical consultation, appendicitis, diverticulitis, PUD , biliary pathology, UTI, pancreatitis, obstruction, mesenteric ischemia, aortic pathology, infections, inflammatory bowel disease, renal colic, as well as others were entertained. Physical examination findings: As above. ER treatment provided: IV fluids, morphine, Zofran On reassessment the patient felt better. Diagnostics interpreted by me: The labs revealed leukocytosis. Stable H&H. Negative lactic acid Imaging studies: CT ABDOMEN & PELVIS: Defect at left iliac wing compatible with reported graft harvesting. Overlying soft tissue swelling with ill-defined hypodensity and skin thickening as well as moderate adjacent subcutaneous edema, nonspecific in setting of recent surgery. Normal appendix. No free air or free fluid. Multiple renal hypodensities, likely cysts although incompletely characterized. Solid organs otherwise unremarkable. No evidence of bowel obstruction. Evaluation of descending and sigmoid colon limited by underdistention. Fat containing umbilical hernia. Radiologist: Darshan Fairchild MD Consultation: A consultation was placed with the orthopedic spine Dr Mann. The case was discussed and diagnostics were reviewed. He recommends starting Keflex and have the patient follow-up with his surgeon tomorrow. I did attempt to call the [facility] orthopedic spine surgeon but there was no one for coverage. Exam and history seem consistent with left lower abdominal pain who had surgery 1 month ago on his neck and had grafting and harvesting from his left iliac crest. Patient did not have acute abdomen on exam. He is well-appearing. Stable H&H. He was afebrile and nontoxic. He is advised follow-up with his orthopedic spine in a day or 2 or here in the ER sooner for abdominal pain, fevers, vomiting, worsening signs or symptoms or as needed. By the evaluation outlined above emergent etiologies such as appendicitis, diverticulitis, PUD, biliary pathology, UTI, pancreatitis, obstruction, mesenteric ischemia, aortic pathology, infections, inflammatory bowel disease, renal colic, as well as others were deemed relatively unlikely. The pt informed about the findings as listed above. All questions were answered and pleased with the treatment. Return instructions were outlined and the patient was discharged in stable condition. Outpatient prescription management: Keflex Referral: The patient was referred back to their orthopedic spine for follow-up in 2 to 3 days for a recheck of the current condition. Case reviewed with my attending. Medical Decision As above Impression Primary Impression: Abdominal pain, acute, left lower quadrant Departure Information Dispostion Home / Self-Care Condition GOOD Referrals No Doctor, Assigned (PCP) Patient Instructions My [facility] Additional Instructions DO NOT drive, drink alcohol, operate machinery, or perform dangerous activities today. You were given medications in the ER that can affect your ability to safely function or operate a vehicle. Cephalexin(Keflex) 500mg: Take one pill four times daily for 10 days for your skin infection. All antibiotics can cause diarrhea. If this occurs and you feel worse or it does not resolve in 1-2 days follow up with your doctor or return to the Emergency Department as this could be signs of serious underlying problems. Any medication can cause an allergic reaction, stop the pills immediately and return to the ER for rash, hives, breathing difficulties, or swelling. Ibuprofen(Motrin, Advil) may be used for fever or pain. Use 600mg every six hours as needed. Take with food. Avoid using more than 2400mg in a 24 hour period. Do not use 2400mg per day for more than three consecutive days without physician direction. Prolonged inappropriate use can lead to stomach upset or ulcers. (AND/OR) Acetaminophen(Tylenol) may be used for fever or pain. Use 1000mg every six hours as needed. Avoid using more than 3000mg in a 24 hour period. Warm compresses to the affected area 4 times daily for 15-20 minutes. Rest and drink plenty of fluids. Continue current medications. Return to the ER for severe pain, persistent fevers, spreading redness, or any worsening of your condition. Follow up with your orthopedic spine surgeon tomorrow, call for an appointment for a recheck of the current condition.
[2017-03-06 03:16] LABS: BUN/CREATININE RATIO 16.6 (10-20); CALCIUM 8.8 mg/dl (8.5-10.1); POTASSIUM 3.9 mmol/L (3.5-5.1)
--- NOTE | 2017-03-06 07:52 | DIAGNOSTIC IMAGING REPORT ---
CT SCAN OF THE ABDOMEN AND PELVIS WITH IV CONTRAST CLINICAL HISTORY: Left lower quadrant abdominal pain. Reported history of recent pelvic bone harvesting. COMPARISON STUDY: Abdominal CT dated 03/20/2015 and 11/24/2013. TECHNIQUE: Following the IV administration of 92 cc of Optiray 320, CT scan of the abdomen and pelvis is performed from the lung bases to the proximal femora. Images are reviewed in the axial, sagittal, and coronal planes. IV contrast was administered without complication. Automated dose control exposure was utilized. CT DOSE: 357.18 mGy.cm FINDINGS: Lung bases: The heart is normal in size and without pericardial effusion. No airspace consolidation or pleural effusion is seen lung base. An 8 mm nodule in the left lower lobe on image #20 is unchanged from 2014 and of doubtful significance. There is a tiny hiatal hernia. Liver: The contrast-enhanced liver is normal in size, contour, and attenuation. There is no intrahepatic biliary ductal dilatation. The hepatic veins and portal veins are patent. Gallbladder: Unremarkable. Spleen: The spleen is mildly enlarged measuring 14.7 cm in length. Pancreas: Unremarkable. Adrenal glands: Unremarkable. Kidneys: The contrast enhanced kidneys are normal in size and without hydronephrosis. The kidneys enhance symmetrically. There are numerous (greater than 20) low-attenuation renal lesions measuring up to 2.3 cm. These are similar in appearance to studies dating back to 2013 and likely represent numerous cysts but cannot definitively characterized on this postcontrast examination. Abdominal vasculature: The abdominal aorta is normal in course and caliber noting scattered foci of atherosclerotic calcification. Bowel: The small bowel and colon are normal in course and caliber. There is mild colonic fecal retention. The appendix is well-visualized and normal. Peritoneum: There is no intraperitoneal free air or abdominal ascites. There is a small fat-containing umbilical hernia. Lymphadenopathy: None. Pelvic viscera: The bladder, prostate, and seminal vesicles are normal as imaged. Skeletal structures and soft tissues: No lytic or blastic lesions are seen. There is a cortical defect with bony fragments and periostitis involving the left iliac wing, best seen on axial image #303. There is surrounding inflammation and trace fluid. There is also edema seen involving the overlying abdominal wall and gluteal musculature, extends into the overlying subcutaneous soft tissues. A 1.6 cm sebaceous cyst is incidentally noted in the right supragluteal region on image #248. IMPRESSION: 1. There is a cortical defect with associated periostitis, small bone fragments, and overlying fluid/inflammation involving the left iliac wing. This is nonspecific given the history of recent surgery and is likely on a postoperative basis. Superimposed infection would be possible exclude and clinical correlation will be essential. 2. No acute infectious or inflammatory findings are identified in the abdomen or pelvis. 3. There are numerous low-attenuation renal lesions likely representing cysts but incompletely characterized. These are similar in appearance to prior studies. Given the number of lesions correlate clinically for a family history of autosomal dominant polycystic kidney disease. 4. Mild splenomegaly. 5. Additional findings as above. Electronically signed by: Giuseppe Penny M.D. 03/06/2017 7:50 AM Dictated Date/Time: 03/06/2017 7:40 AM
[2017-07-03] MEDS ORDERED: CLON0.5T3 PO (16:25)
[2017-07-03] MEDS ORDERED: BUSP15TA70 PO (16:25)
[2017-07-03] MEDS ORDERED: DXY100 PO (16:25)
[2017-07-03] MEDS ORDERED: NICO14DI5 TD (16:25)
[2017-08-13] MEDS ORDERED: CLON0.5T3 PO (22:07)
== END 2017-03-06 03:08 | disposition home or self-care (01) ==
LOC: C.EDB 01:21
DX: R10.32 Left lower quadrant pain (principal); F10.10 Alcohol abuse, uncomplicated; F17.200 Nicotine dependence, unspecified, uncomplicated; I10 Essential (primary) hypertension; F31.9 Bipolar disorder, unspecified; E87.6 Hypokalemia; N28.1 Cyst of kidney, acquired; R91.8 Other nonspecific abnormal finding of lung field; Z87.442 Personal history of urinary calculi; Z79.82 Long term (current) use of aspirin

== ENCOUNTER 2017-06-16 23:01 | Emergency (ER) | payer OTHER ==
[~2017-06-16] VITALS: Ht 170.2 cm; Wt 76.4 kg
[2017-06-16 23:09] VITALS: TEMP 36.7; Ht 170.2 cm; Wt 76.4 kg
[2017-06-16] MEDS ORDERED: PROPARACAINE HCL 0.5% OP SOLN 15 ML BTL OP STA (23:14)
[2017-06-16] MEDS ORDERED: AZIT250T PO (23:34)
[2017-06-16] MEDS ORDERED: CIPROFLOXACIN HCL 0.3% OP SOLN 2.5 ML BTL OP ONE (23:45)
[2017-06-16] MEDS ORDERED: AZITHROMYCIN 250 MG TAB PO ONE (23:45)
[2017-06-16 23:50] VITALS: BP 130/89; PULSE 84; O2SAT 97
--- NOTE | 2017-06-16 23:59 | EMERGENCY ROOM VISIT NOTE ---
History First contact with patient: 23:14 Chief Complaint: EYE PAIN Stated Complaint: PAIN AND WATERY LF EYE History of Present Illness The patient is a 42 year old male who presents to the Emergency Room with complaints of sinus congestion and tearing from his left eye. The patient has had sinus congestion symptoms for the past one to 2 weeks. He states that about a week ago he had persistent watery drainage from the left eye. 2 days ago he started having more eye pain, which now prompted his presentation to the department. He has not had fever or chills. No chest pain, chest tightness, or shortness of breath. He has a small amount of discomfort when moving the eye. No foreign body sensation. His vision is reportedly slightly blurry in the left eye. He rates his overall discomfort 6/10. Review of Systems More than 10 systems were reviewed and otherwise negative with the exception of history of present illness. Past Medical/Surgical History Medical Problems: (1) Acute epididymitis (2) Acute urinary tract infection (3) Alcohol abuse (4) Back pain (5) Benign hypertension (6) Bipolar disorder (7) Calculus of kidney and ureter (8) Dehydration (9) Dizziness (10) Epididymal cyst (11) Epididymitis (12) Flank pain (13) Gastroesophageal reflux disease (14) Headache (15) Headache (16) Hypokalemia (17) Insertion of stent into ureter (18) Kidney cysts (19) Lung mass (20) Migraine (21) Palpitations (22) Strain of thoracic region (23) Testicular pain (24) Testicular pain (25) Tobacco user (26) Ulcer (27) Vomiting (28) Vomiting Family History Heart disease Social History Smoking Status: Current Every Day Smoker Alcohol Use: occasionally Drug Use: none Marital Status: Housing Status: lives alone Occupation Status: disabled Current/Historical Medications Scheduled Aspirin (Aspirin Ec), 81 MG PO DAILY Atorvastatin (Atorvastatin Calcium), 40 MG PO DAILY Azithromycin (Zithromax), 250 MG PO DAILY Metoprolol Succinate (Metoprolol Succinate ER), 25 MG PO DAILY Physical Exam Vital Signs Date Time Temp Pulse Resp B/P (MAP) Pulse Ox O2 Delivery O2 Flow Rate FiO2 06/16/17 23:50 84 18 130/89 97 06/16/17 23:09 36.7 78 18 165/105 93 Room Air Right Eye Acuity: 20/40 w/o glasses Left Eye Acuity: 20/70 w/o glasses Pain Rating (0-10): 3.0 Physical Exam VITALS: Vitals are noted on the nurse's note and reviewed by myself. Vital signs stable. GENERAL: Well-developed, well-nourished, white male, who is in no acute distress and resting comfortably. Patient is cooperative with the examination. HEAD: Normocephalic atraumatic. Positive bilateral maxillary sinus tenderness on percussion. EARS: External ear normal. External auditory canals clear, tympanic membranes pearly waller without erythema or effusion bilaterally. EYES: Pupils equal round and reactive to light and accommodation. Conjunctivae without injection, sclerae without icterus. Extraocular movements intact. No foreign body appreciated. Clear drainage appreciated. Fluroescein exam shows some haziness across the anterior cornea without distinct foreign body consistent with mild abrasion. No gross laceration or ulceration. Pressure is normal. NOSE: Patent, turbinates without inflammation or discharge. MOUTH: Mucous membranes moist. Tonsils are not enlarged. Pharynx without erythema, blood, or exudate. Uvula midline. Airway patent. NECK: Supple without nuchal rigidity. No lymphadenopathy. No thyromegaly. Cervical spine is nontender. HEART: Regular rate and rhythm without murmurs gallops or rubs. LUNGS: Clear to auscultation bilaterally without wheezes, rales or rhonchi. No retractions or accessory muscle use. Medical Decision & Procedures Medications Administered Medications (Trade) Dose Ordered Sig/Katie Route Start Time Stop Time Status Last Admin Dose Admin Ciprofloxacin HCl (Ciprofloxacin 0.3% Op Soln) 2 drops NOW ONCE OP 06/16/17 23:45 06/16/17 23:46 DC 06/16/17 23:43 37 DROPS Azithromycin (Zithromax Tab) 500 mg NOW ONCE PO 06/16/17 23:45 06/16/17 23:46 DC 06/16/17 23:43 500 MG ED Course Physical exam and history were performed. Nursing notes, EMR, and Medication List were personally reviewed. Patient appears to have both sinusitis and corneal abrasion on examination. The patient does not have foreign body or evidence of glaucoma regarding the eye. There is no distinct colitis, but I do believe that these symptoms are related to the sinus infection. He'll be given Ciloxan eyedrops as well as a course of Zithromax. He is to follow-up with his primary care physician and use [id number] analgesics. He was otherwise invited back to the ER with any new, worsening, or concerning symptoms. The chart was completed utilizing [employer] Speech Voice Recognition Software. Grammatical errors, random word insertions, pronoun errors, and incomplete sentences are an occasional consequence of this system due to software limitations, ambient noise, and hardware issues. Any formal questions or concerns about the content, text, or information contained within the body of this dictation should be directly addressed to the provider for clarification. . Medical Decision Differential diagnosis: Etiologies such as viral syndrome, otitis, pharyngitis, pneumonia, conjunctivitis, influenza, meningitis, urinary tract infection, sepsis, bacteremia, as well as others were entertained. Medication Reconcilliation Current Medication List: was personally reviewed by me Blood Pressure Screening Patient's blood pressure: Normal blood pressure Impression Primary Impression: Sinusitis Additional Impression: Corneal abrasion, left Departure Information Dispostion Home / Self-Care Condition GOOD Prescriptions Azithromycin (Zithromax) 250 Mg Tab 250 MG PO DAILY for 4 Days, #4 TAB Prov: Jameson Jalloh PA-C 06/16/17 Forms HOME CARE DOCUMENTATION FORM, IMPORTANT VISIT INFORMATION Patient Instructions My [facility] Additional Instructions You were seen and evaluated today on an emergency basis only. This is not a substitute for, or an effort to provide, complete comprehensive medical care. It is not possible to recognize and treat all injuries or illnesses in a single emergency department visit. For this reason it is recommended that you followup with your primary care physician this week for ongoing care and evaluation. Use Ciloxan Eye Drops: Instill 1-2 drops into the conjunctival sac every 2 hours while awake for 2 days and 1-2 drops every 4 hours while awake for the next 5 days Take Zithromax 250 mg daily for the next 4 days You are welcome to return to the emergency department anytime with new, worsening, or concerning symptoms. Problem Qualifiers
[2017-07-03] MEDS ORDERED: DXY100 PO (16:25)
[2017-07-03] MEDS ORDERED: NICO14DI5 TD (16:25)
[2017-07-03] MEDS ORDERED: CLON0.5T3 PO (16:25)
[2017-07-03] MEDS ORDERED: BUSP15TA70 PO (16:25)
== END 2017-06-16 23:51 | disposition home or self-care (01) ==
LOC: C.EDB 23:03
DX: J32.9 Chronic sinusitis, unspecified (principal); S05.02XA Injury of conjunctiva and corneal abrasion without foreign body, left eye, initial encounter; X58.XXXA Exposure to other specified factors, initial encounter; Z87.440 Personal history of urinary (tract) infections; I10 Essential (primary) hypertension; F31.9 Bipolar disorder, unspecified; Z87.442 Personal history of urinary calculi; K21.9 Gastro-esophageal reflux disease without esophagitis; F17.210 Nicotine dependence, cigarettes, uncomplicated; Z79.82 Long term (current) use of aspirin; Z79.899 Other long term (current) drug therapy

== ENCOUNTER 2017-07-02 17:43 | Emergency (ER) | payer OTHER ==
[~2017-07-02] VITALS: Ht 170.2 cm; Wt 79.4 kg
[2017-07-02 17:47] VITALS: TEMP 36.8; Ht 170.2 cm; Wt 79.4 kg
[2017-07-02] MEDS ORDERED: NITROGLYCERIN OINT 2% 1GM PACKET EXT ONE (18:15)
[2017-07-02 18:19] VITALS: O2SAT 96
[2017-07-02 18:23] LABS: BASO % 0.7 %; BASO ABS # 0.07 K/uL (0-0.2); COMPLETE YES; EOS % 3.8 %; IG% 0.5 %; LYMPH ABS # 3.14 K/uL (1.2-3.4); MEAN CELL VOLUME 89.2 fL (80-100); MEAN CORPUSCULAR HEMOGLOBIN 30.9 pg (25-34); MEAN CORPUSCULAR HGB CONC 34.6 g/dl (32-36); MONO % 6.3 %; NEUT % 58.7 %; PLATELET COUNT 380 K/uL (130-400); RED BLOOD COUNT 5.38 M/uL (4.7-6.1); WHITE BLOOD COUNT 10.46 K/uL (4.8-10.8)
--- NOTE | 2017-07-02 18:31 | DIAGNOSTIC IMAGING REPORT ---
CHEST ONE VIEW PORTABLE CLINICAL HISTORY: cp eval for pna COMPARISON STUDY: 08/09/2016 FINDINGS: The bones soft tissues and hemidiaphragms are normal. The cardiomediastinal silhouette is normal. The lungs are clear. The pulmonary vasculature is normal. IMPRESSION: Negative chest. The above report was generated using voice recognition software. It may contain grammatical, syntax or spelling errors. Electronically signed by: Rock Knowles M.D. 07/02/2017 6:29 PM Dictated Date/Time: 07/02/2017 6:29 PM
[2017-07-02 18:33] LABS: INR 0.9 (0.9-1.1); PARTIAL THROMBOPLASTIN RATIO 1.1; PROTHROMBIN TIME (PATIENT) 10.1 SECONDS (9.0-12.0)
[2017-07-02 18:36] LABS: POINT OF CARE TROPONIN I < 0.030 ng/ml (0-0.045)
[2017-07-02 18:40] LABS: BUN/CREATININE RATIO 16.9 (10-20); CALCIUM 10.1 mg/dl (8.5-10.1); POTASSIUM 4.6 mmol/L (3.5-5.1)
[2017-07-02] MEDS ORDERED: NTRGSL/4 UT (18:41)
[2017-07-02] MEDS ORDERED: ACETAMINOPHEN 500 MG TAB PO STA (18:46)
[2017-07-02] MEDS ORDERED: GUAIFENESIN SUGAR FREE 100 MG/5 ML UDC PO STA (18:46)
[2017-07-02] MEDS ORDERED: FENTANYL CITRATE INJ 50 MCG/1 ML 2 ML VIAL IV STA (19:53)
[2017-07-02] MEDS ORDERED: BENZONATATE 100MG CAP PO PRN (20:00)
[2017-07-02] MEDS ORDERED: OXYCODONE/ACETAMINOPHEN 5-325 TAB PO PRN (20:00)
[2017-07-02] MEDS ORDERED: DOXYCYCLINE IV 100 MG in DEXTROSE 5% 100ML 100 ML IV ONE (20:30)
[2017-07-02 20:58] LABS: ALKALINE PHOSPHATASE 138 U/L (45-117); ALT/SGPT 34 U/L (12-78); AST/SGOT 26 U/L (15-37); MAGNESIUM 2.2 mg/dl (1.8-2.4)
[2017-07-02] MEDS ORDERED: TPRSR/25 PO (21:04)
[2017-07-02] MEDS ORDERED: LPT40 PO (21:04)
[2017-07-02] MEDS ORDERED: ASPI81TA28 PO (21:04)
[2017-07-02 22:20] VITALS: BP 131/89; PULSE 81; O2SAT 96
--- NOTE | 2017-07-03 00:09 | EMERGENCY ROOM VISIT NOTE ---
History Report prepared by Fermin: Toma Raman Under the Supervision of: Dr. Surendra Hare M.D. First contact with patient: 17:55 Chief Complaint: CHEST PAIN Stated Complaint: CHEST AND LEFT ARM PAIN/ SOB History of Present Illness The patient is a 42 year old male who presents to the Emergency Room with complaints of persistent chest pain that began this morning. He currently rates his discomfort as a 7/10 in severity. The patient states that this morning when his chest pain began, he described it as a quick, sharp pain that pulsated into his left arm. He states that he initially attributed his chest pain to his recent increased stress and states that he thought he was having a panic attack. The patient states that he used aspirin this morning for his discomfort, but states that his pain persisted. He additionally associates shortness of breath with his pain today. The patient states that one hour ago he used one dose of nitro and states that 20 minutes ago he used his second dose which has helped to alleviate his discomfort. He now describes his pain as a heaviness. The patient reports a history of heart disease, noting that he follows with Dr. Hubbard of Cardiology. He denies any previous heart catheterization and states that he refused a catheterization in [place]. He preferred a stress test at that time which was performed. The patient states that he was evaluated in [facility] for EKG changes. He states that he smokes 2.5 packs of cigarettes per day. The patient states that his mother had a FL in her 30s. He reports a recent cough, noting that he is bringing up yellow sputum. The patient denies any fever or pain or swelling to his lower extremities. Source of History: patient Onset: this morning Position: chest Symptom Intensity: 7/10 Quality: sharp, other (heaviness, pulsating) Timing: other (persistent) Modifying Factors (Relieving): other (nitroglycerin) Associated Symptoms: + cough, + SOB, No fevers Review of Systems See HPI for pertinent positives & negatives. A total of 10 systems reviewed and were otherwise negative. Past Medical & Surgical Medical Problems: (1) Acute epididymitis (2) Acute urinary tract infection (3) Alcohol abuse (4) Back pain (5) Benign hypertension (6) Bipolar disorder (7) Calculus of kidney and ureter (8) Dehydration (9) Dizziness (10) Epididymal cyst (11) Epididymitis (12) Flank pain (13) Gastroesophageal reflux disease (14) Headache (15) Headache (16) Hypokalemia (17) Insertion of stent into ureter (18) Kidney cysts (19) Lung mass (20) Migraine (21) Palpitations (22) Strain of thoracic region (23) Testicular pain (24) Testicular pain (25) Tobacco user (26) Ulcer (27) Vomiting (28) Vomiting Family History Heart disease Social History Smoking Status: Current Every Day Smoker Alcohol Use: occasionally Drug Use: none Marital Status: Housing Status: lives alone Occupation Status: disabled Current/Historical Medications Scheduled Aspirin (Aspirin Ec), 81 MG PO DAILY Atorvastatin (Atorvastatin Calcium), 40 MG PO DAILY Metoprolol Succinate (Metoprolol Succinate ER), 25 MG PO DAILY Nitroglycerin (Nitrostat), 0.4 MG UT PRN Allergies Coded Allergies: Naproxen (Verified Allergy, Intermediate, hives, 06/16/17) Gabapentin (Verified Allergy, Mild, hives, 06/16/17) Acellular Pertussis (Unverified Allergy, Unknown, CELLULITIS, 06/16/17) Aluminum Phosphate (Unverified Allergy, Unknown, CELLULITIS, 06/16/17) Diphtheria Toxoid (Unverified Allergy, Unknown, CELLULITIS, 06/16/17) Penicillins (Verified Allergy, Unknown, RASH, 06/16/17) Phenoxyethanol (Unverified Allergy, Unknown, CELLULITIS, 06/16/17) Tetanus Toxoid (Unverified Allergy, Unknown, CELLULITIS, 06/16/17) Tramadol (Verified Allergy, Unknown, HIVES, 06/16/17) Physical Exam Vital Signs Date Time Temp Pulse Resp B/P (MAP) Pulse Ox O2 Delivery O2 Flow Rate FiO2 07/02/17 22:20 81 16 131/89 96 07/02/17 22:05 81 16 131/89 96 Room Air 07/02/17 21:48 83 16 118/80 96 Room Air 07/02/17 20:38 84 16 134/97 95 Room Air 07/02/17 19:44 71 16 132/88 96 Room Air 07/02/17 18:20 96 Room Air 07/02/17 18:19 96 Room Air 07/02/17 18:18 Room Air 07/02/17 18:09 71 07/02/17 18:08 65 17 128/94 94 Room Air 07/02/17 17:47 36.8 91 18 131/97 97 Room Air Physical Exam Constitutional: Vital signs reviewed. Eyes: Pupils are equal round reactive to light. Conjunctiva are noninjected. ENT: Pharynx is clear without erythema or exudate. Mucous membranes are moist. Neck supple without meningeal signs. Respiratory: Clear to auscultation bilaterally. Breath sounds are equal bilaterally. Cardiovascular: Regular rate and rhythm. No rubs or gallops. GI: Soft, nondistended and nontender. Bowel sounds are present. Musculoskeletal: No peripheral edema. No lower extremity tenderness. Integumentary: No cyanosis. Neurological: The patient is awake and alert. No focal deficits. Psychiatric: Normal affect. Medical Decision & Procedures ER Provider Diagnostic Interpretation: X-ray results as stated below per interpretation by me and the radiologist: CHEST ONE VIEW PORTABLE CLINICAL HISTORY: cp eval for pna COMPARISON STUDY: 08/09/2016 FINDINGS: The bones soft tissues and hemidiaphragms are normal. The cardiomediastinal silhouette is normal. The lungs are clear. The pulmonary vasculature is normal. IMPRESSION: Negative chest. The above report was generated using voice recognition software. It may contain grammatical, syntax or spelling errors. Electronically signed by: Rock Knowles M.D. 07/02/2017 6:29 PM Dictated Date/Time: 07/02/2017 6:29 PM Laboratory Results 07/02/17 18:15 Red Blood Count 5.38, Mean Corpuscular Volume 89.2, Mean Corpuscular Hemoglobin 30.9, Mean Corpuscular Hemoglobin Concent 34.6, Mean Platelet Volume 9.0, Neutrophils (%) (Auto) 58.7, Lymphocytes (%) (Auto) 30.0, Monocytes (%) (Auto) 6.3, Eosinophils (%) (Auto) 3.8, Basophils (%) (Auto) 0.7, Neutrophils # (Auto) 6.14, Lymphocytes # (Auto) 3.14, Monocytes # (Auto) 0.66, Eosinophils # (Auto) 0.40, Basophils # (Auto) 0.07 07/02/17 18:15 Test 07/02/17 18:15 07/02/17 18:19 White Blood Count 10.46 K/uL (4.8-10.8) Red Blood Count 5.38 M/uL (4.7-6.1) Hemoglobin 16.6 g/dL (14.0-18.0) Hematocrit 48.0 % (42-52) Mean Corpuscular Volume 89.2 fL (80-100) Mean Corpuscular Hemoglobin 30.9 pg (25-34) Mean Corpuscular Hemoglobin Concent 34.6 g/dl (32-36) Platelet Count 380 K/uL (130-400) Mean Platelet Volume 9.0 fL (7.4-10.4) Neutrophils (%) (Auto) 58.7 % Lymphocytes (%) (Auto) 30.0 % Monocytes (%) (Auto) 6.3 % Eosinophils (%) (Auto) 3.8 % Basophils (%) (Auto) 0.7 % Neutrophils # (Auto) 6.14 K/uL (1.4-6.5) Lymphocytes # (Auto) 3.14 K/uL (1.2-3.4) Monocytes # (Auto) 0.66 K/uL (0.11-0.59) Eosinophils # (Auto) 0.40 K/uL (0-0.5) Basophils # (Auto) 0.07 K/uL (0-0.2) RDW Standard Deviation 44.6 fL (36.4-46.3) RDW Coefficient of Variation 13.7 % (11.5-14.5) Immature Granulocyte % (Auto) 0.5 % Immature Granulocyte # (Auto) 0.05 K/uL (0.00-0.02) Prothrombin Time 10.1 SECONDS (9.0-12.0) Prothromb Time International Ratio 0.9 (0.9-1.1) Activated Partial Thromboplast Time 28.2 SECONDS (21.0-31.0) Partial Thromboplastin Ratio 1.1 Anion Gap 7.0 mmol/L (3-11) Est Creatinine Clear Calc Drug Dose 97.2 ml/min Estimated GFR () 107.1 Estimated GFR (Non- 92.4 BUN/Creatinine Ratio 16.9 (10-20) Calcium Level 10.1 mg/dl (8.5-10.1) Magnesium Level 2.2 mg/dl (1.8-2.4) Total Bilirubin 0.3 mg/dl (0.2-1) Direct Bilirubin < 0.1 mg/dl (0-0.2) Aspartate Amino Transf (AST/SGOT) 26 U/L (15-37) Alanine Aminotransferase (ALT/SGPT) 34 U/L (12-78) Alkaline Phosphatase 138 U/L (45-117) Total Protein 8.3 gm/dl (6.4-8.2) Albumin 4.0 gm/dl (3.4-5.0) Lipase 171 U/L (73-393) Bedside D-Dimer 431 ng/mlFEU (0-450) Bedside Troponin I < 0.030 ng/ml (0-0.045) Laboratory results as reviewed by me. Medications Administered Medications (Trade) Dose Ordered Sig/Katie Route Start Time Stop Time Status Last Admin Dose Admin Nitroglycerin (Nitroglycerin 2% Oint) 1 inch NOW ONCE EXT 07/02/17 18:15 07/02/17 19:58 DC 07/02/17 18:07 1 INCH Acetaminophen (Tylenol Tab) 1,000 mg NOW STAT PO 07/02/17 18:46 07/02/17 18:47 DC 07/02/17 19:14 1,000 MG Guaifenesin (Robitussin Sugar Free Syrup) 100 mg NOW STAT PO 07/02/17 18:46 07/02/17 18:47 DC 07/02/17 19:14 100 MG Fentanyl Citrate (Fentanyl Inj) 50 mcg NOW STAT IV 07/02/17 19:53 07/02/17 19:54 DC 07/02/17 19:58 50 MCG Doxycycline Hyclate 100 mg/ Dextrose 110 ml @ 50 mls/hr TODAY@2029 ONCE IV 07/02/17 20:30 07/02/17 22:41 DC 07/02/17 20:35 50 MLS/HR ECG Indication: chest pain Rate (beats per minute): 73 Rhythm: normal sinus Findings: other (J point elevation in the precordial leads, peaked T waves V2 and V3) Comparison ECG Date: 08/09/16 Change: no significant change Change: Repeat EKG shows normal sinus rhythm, 70 consistent J point elevation, less prominent T waves, but still peaked, no ectopy. ED Course 1756: The patient was evaluated in room C2B. A complete history and physical exam was performed. 1814: Ordered Nitroglycerin 1 inch EXT. 1845: I reevaluated the patient and he is feeling better. I discussed the test results with him and I discussed the treatment plan. He verbalized complete understanding and agreement. He is requesting Tylenol and Robitussin. He will be evaluated for further treatment. Ordered Guaifenesin 100 mg PO, Tylenol Tab 1000 mg PO. 1847: I discussed the patients case with Vipul Lucero. He is going to evaluate the patient for further treatment. 1916: I reevaluated the patient and he was first hesitant to stay for further evaluation and treatment. I reviewed his EKG and discussed limitations of the testing done in the emergency department. He agreed to stay for further treatment and evaluation. 1952: Ordered Fentanyl Inj 50 mcg IV. 2202: The patient was evaluated by Dr. Garvin who was going to admit him, but he states that Dr. Garvin did not feel his symptoms are likely cardiac. I had a long discussion with the patient regarding his heart and risk factors, but he is refusing to stay in the hospital. He understands the risks of leaving. Medical Decision this is a 42-year-old male who presents with chest pain.differential diagnosis includes unstable angina, FL, pleurisy, pneumonia, pulmonary embolism. I did perform a limited focused review of portions of the patient's old chart on the electronic medical record. The patient was admitted here in January 2016 for chest pain. He had a normal TTE and noted to have multiple negative stress tests in the past. I did evaluate the patient as noted above. The patient is presenting with chest pain which she now describes as heaviness. He has a number of cardiac risk factors including tobacco use and family history. IV access was established. The patient was placed on a continuous ekg monitor. I did order and personally review the patient's 12-lead EKG and chest x-ray as described above. He has some changes as described above. I did treat him with nitroglycerin paste. He did have aspirin earlier. I did order and review the patient's blood work as noted in the electronic medical record. His troponin and d-dimer are both negative. I did reassess the patient. He states his chest pain is improved. I did discuss the test results with the patient. I did recommend hospitalization because for further evaluation and repeat cardiac enzymes. He initially agreed but then later stated that he wanted to go home. I again expressed my concern to him and explained his abnormal EKG here and his risk factors for cardiac disease as well as limitations of the workup done here and he acquiesced to staying. I did discuss the case with the Vipul hospitalist and the field case manager. Later the patient stated he had recurrent pain and was given fentanyl 50 g IV. The nurse later approached me and stated that the hospitalist had spoken the patient and now the patient wanted to go home. I did meet with the patient again. He stated he wanted to go home because the hospitalist told them that his pain was from rib tenderness and not his heart. He did admit, however, that the hospitalist was still intending to admit him to the hospital and repeat his cardiac enzymes. I did express to him again my concerns for cardiac disease and reaffirmed does need to stay in the hospital for repeat enzymes and further evaluation. The patient's instruction dean also tried to convince him but he was adamant about leaving. He was able to verbalize to me my concerns and also potential consequences of leaving AGAINST MEDICAL ADVICE including or permanent disability. The patient was discharged AGAINST MEDICAL ADVICE. Medication Reconcilliation Current Medication List: was personally reviewed by me Blood Pressure Screening Patient's blood pressure: Elevated blood pressure Blood pressure disposition: Did not require urgent referral Consults Time Called: 1847 Consulting Physician: Vipul Lucero Returned Call: 1847 I discussed the patients case with Vipul Lucero. He is going to evaluate the patient for further treatment. Impression Primary Impression: Acute chest pain Scribe Attestation The scribe's documentation has been prepared under my direct and personally reviewed by me in its entirety. I confirm that the note above accurately reflects all work, treatment, procedures, and medical decision making performed by me. Departure Information Dispostion Against Medical Advice Referrals No Doctor, Assigned (PCP)
[2017-07-03] MEDS ORDERED: IV FLUIDS COMPLETED PRN (00:30)
[2017-07-03] MEDS ORDERED: NICO14DI5 TD (16:25)
[2017-07-03] MEDS ORDERED: BUSP15TA70 PO (16:25)
[2017-07-03] MEDS ORDERED: DXY100 PO (16:25)
[2017-07-03] MEDS ORDERED: CLON0.5T3 PO (16:25)
== END 2017-07-02 22:20 | disposition left against medical advice (07) ==
LOC: C.EDC 17:45 → CANRESERV 21:55 → ENRESERV 21:55 → C.EDC 22:20 → CANBEDREQ 22:47 → C.EDC 07-03 08:42
DX: R07.9 Chest pain, unspecified (principal); Z87.440 Personal history of urinary (tract) infections; F10.10 Alcohol abuse, uncomplicated; I10 Essential (primary) hypertension; F31.9 Bipolar disorder, unspecified; Z87.442 Personal history of urinary calculi; N45.1 Epididymitis; K21.9 Gastro-esophageal reflux disease without esophagitis; E87.6 Hypokalemia; G43.909 Migraine, unspecified, not intractable, without status migrainosus; Z82.49 Family history of ischemic heart disease and other diseases of the circulatory system; F17.210 Nicotine dependence, cigarettes, uncomplicated; Z79.82 Long term (current) use of aspirin; Z79.899 Other long term (current) drug therapy

== ENCOUNTER 2017-07-03 01:05 | Observation (INO) | payer OTHER ==
[2017-07-03] VITALS (7 sets, daily range): BP systolic 116–129; BP diastolic 72–87; PULSE 58–67; TEMP 36.4–36.5; O2SAT 96–97; Ht 170.2 cm; Wt 81.2 kg
[~2017-07-03] VITALS: Ht 170.2 cm; Wt 81.2 kg
[~2017-07-03 01:05] MED LIST changes: -AZIT250T PO; -BUSP15TA70 PO; -CIPR-255 PO; -CLON0.5T3 PO; -DXY100 PO; -METR-163 PO; -NICO14DI5 TD; -PRED50TA PO
[2017-07-03 01:29] LABS: BASO % 0.6 %; BASO ABS # 0.07 K/uL (0-0.2); COMPLETE YES; EOS % 4.7 %; HEMATOCRIT 46.1 % (42-52); IG% 0.4 %; LYMPH % 33.9 %; LYMPH ABS # 3.88 K/uL (1.2-3.4); MEAN CELL VOLUME 89.7 fL (80-100); MEAN CORPUSCULAR HGB CONC 33.4 g/dl (32-36); MEAN PLATELET VOLUME 8.9 fL (7.4-10.4); NEUT % 54.4 %; PLATELET COUNT 383 K/uL (130-400); RED BLOOD COUNT 5.14 M/uL (4.7-6.1); WHITE BLOOD COUNT 11.45 K/uL (4.8-10.8)
[2017-07-03] MEDS ORDERED: ACETAMINOPHEN 325 MG TAB PO PRN (01:30)
[2017-07-03] MEDS ORDERED: ONDANSETRON INJ 2 MG/ML 2 ML VIAL IV PRN (01:30)
[2017-07-03] MEDS ORDERED: LEVALBUTEROL/IPRATROPIUM NEB INH PRN (01:30)
[2017-07-03] MEDS ORDERED: LORAZEPAM 2 MG/ML 1 ML VIAL IV PRN (01:30)
[2017-07-03] MEDS ORDERED: MoRPHine SULFATE 2 MG/ML CARP IV PRN (01:30)
[2017-07-03] MEDS ORDERED: IPRATROPIUM BROMIDE NEB SOLN 0.02% 2.5 ML VIAL INH PRN (01:45)
[2017-07-03] MEDS ORDERED: LEVALBUTEROL 1.25MG/0.5ML NEB INH PRN (01:45)
[2017-07-03 01:56] LABS: CHOLESTEROL 256 mg/dl (0-200); CHOLESTEROL/HDL RATIO 7.3; HDL CHOLESTEROL 35 mg/dl; LDL CHOLESTEROL CALCULATED 160 mg/dl; TRIGLYCERIDES 304 mg/dl (0-150); VERY LOW DENSITY LIPOPROT CALC 61 mg/dl
[2017-07-03] MEDS ORDERED: IV FLUIDS COMPLETED PRN (02:00)
[2017-07-03] MEDS: OXYCODONE/ACETAMINOPHEN 5-325 TAB PO PRN ×2 (03:14→08:50)
[2017-07-03] MEDS ORDERED: METOPROLOL SUCC 25MG EXT REL TAB PO ONE (03:30)
[2017-07-03] MEDS ORDERED: SODIUM CHLORIDE 0.45% 1000ML 1,000 ML IV ONE (03:30)
[2017-07-03 04:31] LABS: INR 0.9 (0.9-1.1); PROTHROMBIN TIME (PATIENT) 10.1 SECONDS (9.0-12.0)
[2017-07-03 04:46] LABS: CREATININE 0.78 mg/dl (0.60-1.40)
--- NOTE | 2017-07-03 05:10 | HISTORY & PHYSICAL EXAMINATION ---
DATE OF ADMISSION: 07/03/2017 PRIMARY CARE DOCTOR: None. CHIEF COMPLAINT: Chest pain. HISTORY OF PRESENT ILLNESS: History obtained from patient and records. Medical history is significant for hypertension, hyperlipidemia, past alcohol abuse, ongoing tobacco abuse. Recent confinement, January 2016 for atypical chest pain. A 2D echo showed EF of 65%, LVH. Patient yet to undergo outpx stress test. A week history of cough symptoms productive initially clear later junky sputum. Denies aspiration. No fever no chills. Patient also noted achy left sided chest pain went to the shoulder. Some stress at home and work. Nonpleuritic chest pain not relieved by nitroglycerin in the ER last night. Some shortness of breath. Patient refused admission last night. Returned to the ER this morning. MEDICAL HISTORY: As above. SURGERIES: He has had knee surgery, urologic procedures upper arm and elbow surgery. HOME MEDICATIONS: Include, aspirin, metoprolol, atorvastatin, and Nitrostat. ALLERGIES. TO GABAPENTIN, TRAMADOL, PENICILLIN. FAMILY HISTORY: Heart disease. 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 REVIEW OF SYSTEMS: As per HPI, all other ROS negative. PHYSICAL EXAMINATION: VITAL SIGNS: Blood pressure was noted to be 168/100, later 150/80, pulse rate 90, RR 20, temperature 37. sats 96 on room air. GENERAL: Noted to be anxious, no respiratory distress. SKIN: Normal color. Multiple tattoos HEENT: [place] palpebral conjunctivae. Dry mucosa. NECK: Supple. No tenderness CHEST: Clear to auscultation. No anterior chest tenderness. Cardiovascular: No JVD, Regular rate and rhythm. ABDOMEN: Soft. NT EXTREMITIES: No edema. No tenderness. NEUROLOGIC: Coherent, no gross focality. LABORATORY DATA : Hemoglobin was noted to be 15.4, hematocrit 46.1, white cell count is 11.4, platelets 383. Troponin from yesterday was normal. D-dimer was normal. IMAGING DATA: Chest x-ray , negative chest. EKG as per my interpretation : normal sinus rhythm, normal axis, negative ischemia, PRWP. ASSESSMENT: 1. Atypical chest pain possibly from complicated bronchitis (no sepsis), personal stressors. ro rib fracture. 2. Hypertension, elevated. 3. Hyperlipidemia, on statin therapy. 4. Ongoing tobacco abuse. PLAN: OBS PCU analgesia. Doxycycline for complicated bronchitis Rib series left follow troponin for 1 more set. TTE RE cp Home in AM if above workup unremarkable and patient comfortable. nicotine patch. DVT prophylaxis, Lovenox subQ. Full code. MTDD
--- NOTE | 2017-07-03 07:31 | DIAGNOSTIC IMAGING REPORT ---
L RIBS UNILATERAL MIN 2 VIEWS CLINICAL HISTORY: Left-sided chest pain. Cough. COMPARISON STUDY: Chest x-ray dated 07/02/2017 FINDINGS: No pneumothorax is visualized. No left-sided rib fractures are visualized. Postsurgical changes are present within the cervical spine. IMPRESSION: No evidence of pneumothorax. No left-sided rib fractures are visualized. Electronically signed by: Rishi Ledezma M.D. 07/03/2017 6:44 AM Dictated Date/Time: 07/03/2017 6:43 AM
[2017-07-03] MEDS ORDERED: DOXYCYCLINE HYCLATE 100 MG CAP PO SCH (09:00)
[2017-07-03] MEDS ORDERED: ATORVASTATIN 40 MG TAB PO SCH (09:00)
[2017-07-03] MEDS ORDERED: ENOXAPARIN 40 MG/0.4 ML SYR SC SCH (09:00)
[2017-07-03] MEDS ORDERED: ASPIRIN 81 MG ECTAB PO SCH (09:00)
[2017-07-03] MEDS ORDERED: NICOTINE 14 MG/24 HR TDSY TD SCH (09:00)
--- NOTE | 2017-07-03 12:34 | ECHOCARDIOGRAM REPORT ---
*NOTICE TO RECEIVING DEMOCRAT AGENCY This information is strictly Confidential and protected under [place] law. [place] law prohibits you from making any further disclosure of this information unless further disclosure is expressly permitted by the written consent of the person to whom it pertains or is authorized by law. A general authorization for the release of medical or other information is not sufficient for this purpose. Hospital accepts no responsibility if the information is made available to any other person, INCLUDING THE PATIENT. Interpretation Summary * Name: DOV GARCIA Study Date: 07/03/2017 06:33 AM BP: 129/87 mmHg * Patient Location: C.2T\S\S230\S\2 HR: 51 * : 1975 (M/d/yyyy) Gender: Male Height: 67 in * Age: 42 yrs Ethnicity: CA Weight: 177 lb * Ordering Physician: Kaleb Garvin * Referring Physician: Self, Referred * Performed By: Laney Heller RCS * * Reason For Study: CHEST PAIN * BSA: 1.9 m2 * -- Conclusions -- * The left ventricle is normal in size. * There is mild concentric left ventricular hypertrophy. * Left ventricular systolic function is normal. * The left ventricular wall motion is normal. * Ejection Fraction = 60-65%. * There is no significant valvular disease. * There is no pericardial effusion. Procedure Details * A complete two-dimensional transthoracic echocardiogram was performed (2D, M-mode, Doppler and color flow Doppler). Left Ventricle * The left ventricle is normal in size. * There is mild concentric left ventricular hypertrophy. * Left ventricular systolic function is normal. * Ejection Fraction = 60-65%. * The left ventricular wall motion is normal. Right Ventricle * The right ventricle is normal in size and function. Atria * The left atrial size is normal. * Right atrial size is normal. * No ASD detected; PFO is not assessed. Mitral Valve * The mitral valve anatomy is normal. * There is no mitral valve stenosis. * There is trace mitral regurgitation. Tricuspid Valve * The tricuspid valve anatomy is normal. * There is no tricuspid stenosis. * There is trace tricuspid regurgitation. Aortic Valve * The aortic valve is trileaflet. * No hemodynamically significant valvular aortic stenosis. * No aortic regurgitation is present. Pulmonic Valve * The pulmonic valve is not well visualized. Great Vessels * The aortic root is normal size. Pericardium/Pleural * There is no pericardial effusion. Great Vessels * Normal inferior vena cava diameter and respiratory variation suggests normal central venous pressure. MMode 2D Measurements and Calculations IVSd 1.2 cm IVSs 1.6 cm LVIDd 3.8 cm LVIDs 2.9 cm LVPWd 1.4 cm LVPWs 1.5 cm IVS/LVPW 0.86 FS 22.5 % EDV(Teich) 61.6 ml ESV(Teich) 33.2 ml EF(Teich) 46.1 % EDV(cubed) 54.5 ml ESV(cubed) 25.3 ml EF(cubed) 53.5 % % IVS thick 35.4 % % LVPW thick 10.2 % LV mass(C)d 170.4 grams LV mass(C)dI 88.8 grams/m\S\2 LV mass(C)s 166.5 grams LV mass(C)sI 86.7 grams/m\S\2 SV(Teich) 28.4 ml SI(Teich) 14.8 ml/m\S\2 SV(cubed) 29.2 ml SI(cubed) 15.2 ml/m\S\2 Ao root diam 3.3 cm Ao root area 8.4 cm\S\2 LA dimension 3.6 cm LA/Ao 1.1 LVOT diam 2.1 cm LVOT area 3.5 cm\S\2 Doppler Measurements and Calculations MV E max john 69.6 cm/sec MV A max john 57.2 cm/sec MV E/A 1.2 MV P1/2t max john 84.6 cm/sec MV P1/2t 68.5 msec MVA(P1/2t) 3.2 cm\S\2 MV dec slope 361.5 cm/sec\S\2 MV dec time 0.18 sec Ao V2 max 98.9 cm/sec Ao max PG 3.9 mmHg Ao max PG (full) 0.51 mmHg KARY(V,A) 3.3 cm\S\2 KARY(V,D) 3.3 cm\S\2 LV V1 max PG 3.4 mmHg LV V1 max 92.2 cm/sec PA V2 max 82.0 cm/sec PA max PG 2.7 mmHg PI max john 177.7 cm/sec PI max PG 12.6 mmHg PI dec slope 170.8 cm/sec\S\2 PI P1/2t 304.7 msec TR max john 228.2 cm/sec
[2017-07-03 13:57] LABS: CKMB/CK RATIO 1.2 (0-3.0)
[2017-07-03] MEDS ORDERED: CLON0.5T3 PO (16:25)
[2017-07-03] MEDS ORDERED: NICO14DI5 TD (16:25)
[2017-07-03] MEDS ORDERED: DXY100 PO (16:25)
[2017-07-03] MEDS ORDERED: BUSP15TA70 PO (16:25)
--- NOTE | 2017-07-03 16:59 | Progress Note ---
Subjective Date of Service: Jul 03, 2017. Subjective Pt evaluation today including: conversation w/ patient, physical exam, lab review, review of studies, review of inpatient medication list Saw/examined the patient in room 230 Doing well; no chest pain currently Feels lost of stressors at home are making things worse +cough, congestion Problem List Medical Problems: (1) Abdominal pain, acute, left lower quadrant Status: Acute (2) Abscess of left groin Status: Acute (3) Abscess of right thigh Status: Acute (4) Acid reflux Status: Acute (5) Acute chest pain Status: Acute (6) Acute low back pain Status: Acute (7) Corneal abrasion, left Status: Acute (8) Encounter for wound re-check Status: Acute (9) Intermittent left-sided chest pain Status: Acute (10) Left leg paresthesias Status: Acute (11) Neck pain Status: Acute (12) Sinusitis Status: Acute (13) Substernal chest pain Status: Acute Review of Systems Constitutional: No fever, No chills ENT: + problem reported (congestion) Respiratory: + cough, + sputum, No wheezing, No shortness of breath, No dyspnea on exertion, No dyspnea at rest, No hemoptysis Cardiac: No chest pain (resolved), No edema, No palpitations Abdomen: No pain, No nausea, No vomiting, No diarrhea Psychiatric: + anxiety, No depression symptoms, No insomnia Medications Current Inpatient Medications Medications (Trade) Dose Ordered Sig/Katie Route Start Time Stop Time Status Last Admin Dose Admin Enoxaparin Sodium (Lovenox Inj) 40 mg Q24H SC 07/03/17 09:00 08/02/17 08:59 07/03/17 08:06 40 MG Acetaminophen (Tylenol Tab) 650 mg Q4H PRN PO 07/03/17 01:30 08/02/17 01:29 Doxycycline Hyclate (Vibramycin Cap) 100 mg BID PO 07/03/17 09:00 07/10/17 08:59 07/03/17 08:07 100 MG Oxycodone/ Acetaminophen (Percocet 5-325mg Tab) 1 tab Q6H PRN PO 07/03/17 01:30 07/17/17 01:29 07/03/17 08:50 1 TAB Morphine Sulfate (MoRPHine SULFATE INJ) 2 mg Q3H PRN IV 07/03/17 01:30 07/17/17 01:29 Ondansetron HCl (Zofran Inj) 4 mg Q6H PRN IV 07/03/17 01:30 08/02/17 01:29 Lorazepam (Ativan Inj) 0.5 mg Q4H PRN IV 07/03/17 01:30 08/02/17 01:29 Nicotine (Nicoderm Cq 14MG Patch) 1 patch QAM TD 07/03/17 09:00 08/02/17 08:59 07/03/17 08:07 1 PATCH Miscellaneous (Remove Nicoderm Patch) 1 ea HS N/A 07/03/17 21:00 08/02/17 20:59 Aspirin (Ecotrin Tab) 81 mg DAILY PO 07/03/17 09:00 08/02/17 08:59 07/03/17 08:07 81 MG Atorvastatin Calcium (Lipitor Tab) 40 mg DAILY PO 07/03/17 09:00 08/02/17 08:59 07/03/17 08:07 40 MG Metoprolol Succinate (Toprol Xl Tab) 25 mg DAILY PO 07/04/17 09:00 08/03/17 08:59 Ipratropium [place] (Atrovent 0.02% 0.5MG/2.5ML Neb) 0.5 mg Q4H PRN INH 07/03/17 01:45 08/02/17 01:44 Levalbuterol (Xopenex 1.25MG/ 0.5ML Neb) 1.25 mg Q4H PRN INH 07/03/17 01:45 08/02/17 01:44 Miscellaneous (Iv Fluids Completed) 1 ea PRN PRN N/A 07/03/17 02:00 07/03/18 01:59 Objective Vital Signs Date Time Temp Pulse Resp B/P (MAP) Pulse Ox O2 Delivery O2 Flow Rate FiO2 07/03/17 16:51 36.4 61 18 97 Room Air 07/03/17 16:00 Room Air 07/03/17 15:24 36.4 61 18 124/76 (92) 97 Room Air 07/03/17 12:00 Room Air 07/03/17 10:38 36.4 58 19 116/72 (87) 97 Room Air 07/03/17 08:00 Room Air 07/03/17 07:06 36.4 64 18 129/85 (100) 96 Room Air 07/03/17 04:00 Room Air 07/03/17 03:11 36.5 67 17 129/87 (101) 97 Room Air 07/03/17 01:59 36.5 60 18 127/85 Room Air 07/03/17 01:32 79 07/03/17 01:07 36.6 94 20 168/100 96 Room Air Physical Exam General Appearance: no apparent distress Respiratory/Chest: lungs clear, normal breath sounds, no respiratory distress, no accessory muscle use Cardiovascular: regular rate, rhythm, no edema, no murmur Abdomen: normal bowel sounds, non tender, soft Extremities: normal inspection, no pedal edema Neurologic/Psychiatric: no motor/sensory deficits, alert, normal mood/affect Laboratory Results Last 24 Hours Test 07/03/17 01:20 07/03/17 04:02 07/03/17 13:01 White Blood Count 11.45 K/uL Red Blood Count 5.14 M/uL Hemoglobin 15.4 g/dL Hematocrit 46.1 % Mean Corpuscular Volume 89.7 fL Mean Corpuscular Hemoglobin 30.0 pg Mean Corpuscular Hemoglobin Concent 33.4 g/dl Platelet Count 383 K/uL Mean Platelet Volume 8.9 fL Neutrophils (%) (Auto) 54.4 % Lymphocytes (%) (Auto) 33.9 % Monocytes (%) (Auto) 6.0 % Eosinophils (%) (Auto) 4.7 % Basophils (%) (Auto) 0.6 % Neutrophils # (Auto) 6.22 K/uL Lymphocytes # (Auto) 3.88 K/uL Monocytes # (Auto) 0.69 K/uL Eosinophils # (Auto) 0.54 K/uL Basophils # (Auto) 0.07 K/uL RDW Standard Deviation 45.2 fL RDW Coefficient of Variation 13.8 % Immature Granulocyte % (Auto) 0.4 % Immature Granulocyte # (Auto) 0.05 K/uL Troponin I < 0.015 ng/ml < 0.015 ng/ml Triglycerides Level 304 mg/dl Cholesterol Level 256 mg/dl HDL Cholesterol 35 mg/dl LDL Cholesterol, Calculated 160 mg/dl VLDL Cholesterol, Calculated 61 mg/dl Cholesterol/HDL Ratio 7.3 Prothrombin Time 10.1 SECONDS Prothromb Time International Ratio 0.9 Creatinine 0.78 mg/dl Est Creatinine Clear Calc Drug Dose 125.9 ml/min Estimated GFR () 129.0 Estimated GFR (Non- 111.3 Total Creatine Kinase 155 U/L Creatine Kinase MB 1.9 ng/ml Creatine Kinase MB Ratio 1.2 Assessment and Plan This is a 42 year old male with a PMH of HTN, HLD, tobacco use disorder - presents with chest pain and anxiety Chest Pain rule out ACS this does not seem cardiac in nature pain is across the chest, but associated with stress/anxiety when he is resting/sleeping, he does not feel the pain EKG, echo and cardiac enzymes with no acute findings will d/c home with aspirin, statin, and b-lala Anxiety patient seems to be under stress due to home and work stressors as well as family life He is having trouble coping will d/c with Buspar for anxiety. Klonopin PRN in the short term while Buspar takes effect outpatient PCP follow-up Tobacco use Disorder counseled on tobacco cessation nicotine patch script written for discharge DVT ppx Lovenox FULL CODE
--- NOTE | 2017-07-03 17:03 | Discharge Instructions ---
Discharge Instructions Date of Service Jul 03, 2017. Admission Reason for Admission: Chest Pain Discharge Discharge Diagnosis / Problem: Chest Pain, likely Anxiety/Stress Discharge Goals Goal(s): Decrease discomfort, Improve function, Diagnostic testing, Therapeutic intervention Activity Recommendations Activity Limitations: resume your previous activity . Instructions / Follow-Up Instructions / Follow-Up Please follow-up with a primary care physician You will be discharged with * Klonopin - only take as needed for anxiety * Buspar - take this twice a day for anxiety * Doxycycline (antibiotic) for your upper respiratory infection * continue aspirin, Lipitor, metoprolol * stop smoking - you are given a nicotine patch to help Current Hospital Diet Patient's current hospital diet: AHA Diet (Heart Healthy) Discharge Diet Recommended Diet: AHA Diet (Heart Healthy) Pending Studies Studies pending at discharge: no Laboratory Results Lipid Panel Test 07/03/17 01:20 Range/Units Triglycerides Level 304 H 0-150 mg/dl Cholesterol Level 256 H 0-200 mg/dl HDL Cholesterol 35 mg/dl Cholesterol/HDL Ratio 7.3 LDL Cholesterol, Calculated 160 mg/dl Medical Emergencies . Who to Call and When: Medical Emergencies: If at any time you feel your situation is an emergency, please call 911 immediately. . Non-Emergent Contact Non-Emergency issues call your: Primary Care Provider . . "Provider Documentation" section prepared by Nate Wahl. . VTE Core Measure Inpt VTE Proph given/why not?: Enoxaparin (Lovenox)SQ [place] Drug Monitoring Program Search Results: patient reviewed within database, no issues identified
--- NOTE | 2017-07-03 17:06 | Discharge Summary ---
Discharge Summary Date of Service Jul 03, 2017. Discharge Summary Admission Date: Jul 03, 2017 at 01:13 Discharge Date: Jul 03, 2017 Discharge Disposition: Home Principal Diagnosis: Chest Pain, likely Anxiety/Stress Medication Reconciliation New Medications: Buspirone Hcl (Buspar) 15 Mg Tab 1 TAB PO BID for 30 Days, #60 TAB Clonazepam (Klonopin) 0.5 Mg Tab 1 TAB PO BID PRN for Anxiety/Agitation for 5 Days, #10 TAB 0 Refills Doxycycline Hyclate (Doxycycline Hyclate) 100 Mg Cap 100 MG PO BID for 7 Days, #14 CAP Nicotine (Nicoderm Cq 14MG Patch) 14 Mg/24 Hr Dis 14 MG TD QAM for 30 Days, #1 BOX Continued Medications: Aspirin (Aspirin Ec) 81 Mg Tab 81 MG PO DAILY Atorvastatin (Atorvastatin Calcium) 40 Mg Tab 40 MG PO DAILY Metoprolol Succinate (Metoprolol Succinate ER) 25 Mg Tabcr 25 MG PO DAILY Nitroglycerin (Nitrostat) 0.4 Mg Tab 0.4 MG UT PRN, BTL Admission Information HPI (per Admitting provider): DATE OF ADMISSION: 07/03/2017 PRIMARY CARE DOCTOR: None. CHIEF COMPLAINT: Chest pain. HISTORY OF PRESENT ILLNESS: History obtained from patient and records. Medical history is significant for hypertension, hyperlipidemia, past alcohol abuse, ongoing tobacco abuse. Recent confinement, January 2016 for atypical chest pain. A 2D echo showed EF of 65%, LVH. Patient yet to undergo outpx stress test. A week history of cough symptoms productive initially clear later junky sputum. Denies aspiration. No fever no chills. Patient also noted achy left sided chest pain went to the shoulder. Some stress at home and work. Nonpleuritic chest pain not relieved by nitroglycerin in the ER last night. Some shortness of breath. Patient refused admission last night. Returned to the ER this morning. MEDICAL HISTORY: As above. SURGERIES: He has had knee surgery, urologic procedures upper arm and elbow surgery. HOME MEDICATIONS: Include, aspirin, metoprolol, atorvastatin, and Nitrostat. ALLERGIES. TO GABAPENTIN, TRAMADOL, PENICILLIN. FAMILY HISTORY: Heart disease. 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 REVIEW OF SYSTEMS: As per HPI, all other ROS negative. PHYSICAL EXAMINATION: VITAL SIGNS: Blood pressure was noted to be 168/100, later 150/80, pulse rate 90, RR 20, temperature 37. sats 96 on room air. GENERAL: Noted to be anxious, no respiratory distress. SKIN: Normal color. Multiple tattoos HEENT: [place] palpebral conjunctivae. Dry mucosa. NECK: Supple. No tenderness CHEST: Clear to auscultation. No anterior chest tenderness. Cardiovascular: No JVD, Regular rate and rhythm. ABDOMEN: Soft. NT EXTREMITIES: No edema. No tenderness. NEUROLOGIC: Coherent, no gross focality. LABORATORY DATA : Hemoglobin was noted to be 15.4, hematocrit 46.1, white cell count is 11.4, platelets 383. Troponin from yesterday was normal. D-dimer was normal. IMAGING DATA: Chest x-ray , negative chest. EKG as per my interpretation : normal sinus rhythm, normal axis, negative ischemia, PRWP. ASSESSMENT: 1. Atypical chest pain possibly from complicated bronchitis (no sepsis), personal stressors. ro rib fracture. 2. Hypertension, elevated. 3. Hyperlipidemia, on statin therapy. 4. Ongoing tobacco abuse. PLAN: OBS PCU analgesia. Doxycycline for complicated bronchitis Rib series left follow troponin for 1 more set. TTE RE cp Home in AM if above workup unremarkable and patient comfortable. nicotine patch. DVT prophylaxis, Lovenox subQ. Full code. Hospital Course This is a 42 year old male with a PMH of HTN, HLD, tobacco use disorder - presents with chest pain and anxiety Chest Pain rule out ACS this does not seem cardiac in nature pain is across the chest, but associated with stress/anxiety when he is resting/sleeping, he does not feel the pain EKG, echo and cardiac enzymes with no acute findings will d/c home with aspirin, statin, and b-lala Anxiety patient seems to be under stress due to home and work stressors as well as family life He is having trouble coping will d/c with Buspar for anxiety. Klonopin PRN in the short term while Buspar takes effect outpatient PCP follow-up Tobacco use Disorder counseled on tobacco cessation nicotine patch script written for discharge DVT ppx Lovenox FULL CODE Total time spent on discharge = 45 minutes This includes examination of the patient, discharge planning, medication reconciliation, and communication with other providers. Discharge Instructions Please follow-up with a primary care physician You will be discharged with * Klonopin - only take as needed for anxiety * Buspar - take this twice a day for anxiety * Doxycycline (antibiotic) for your upper respiratory infection * continue aspirin, Lipitor, metoprolol * stop smoking - you are given a nicotine patch to help
[2017-07-04] MEDS ORDERED: METOPROLOL SUCC 25MG EXT REL TAB PO SCH (09:00)
== END 2017-07-03 17:55 | disposition home or self-care (01) ==
LOC: C.EDB 01:06 → C.2T 01:13 → ENRESERV 01:43
PROVIDERS: ADMIT Internal Medicine; ATTEND Family Medicine
DX: R07.9 Chest pain, unspecified (principal); E78.5 Hyperlipidemia, unspecified; I10 Essential (primary) hypertension; Z72.0 Tobacco use; Z98.890 Other specified postprocedural states; Z79.82 Long term (current) use of aspirin; Z79.899 Other long term (current) drug therapy; Z88.0 Allergy status to penicillin

== ENCOUNTER 2017-10-01 22:10 | Emergency (ER) | payer OTHER ==
[~2017-10-01] VITALS: Ht 170.2 cm; Wt 80.4 kg
[~2017-10-01 22:10] MED LIST changes: +CLON0.5T3 PO
[2017-10-01 22:12] VITALS: TEMP 36.7; Ht 170.2 cm; Wt 80.4 kg
[2017-10-01] MEDS ORDERED: LIDOCAINE/EPINEPHRINE 1% 20 ML VIAL INFIL ONE (23:30)
--- NOTE | 2017-10-01 23:46 | EMERGENCY ROOM VISIT NOTE ---
ED Visit Note First contact with patient: 22:24 CHIEF COMPLAINT: Infection on the left jaw HISTORY OF PRESENT ILLNESS: This 42-year-old male presents to the emergency department concerns for a hard tender area on his left lower jaw that started to days ago. It is slowly getting larger, more painful and tender. No fever, chills, or loss of appetite. He states the area started as a pimple, he states that he squeezed it when it first started, and it popped draining some bloody pus, however it has not been draining since then and has been getting bigger. There was no injury to the area preceding the infection. He reports a history of abscesses in the past, but denies any previous facial abscesses or ingrown visual hair. Patient also complains of dry skin on his face around his eyes and ears, redness to both eyes, and watery drainage from the eyes with increased tearing. He denies any vision changes, eye pain, purulent drainage from the eyes or ears. He states that he has been digging in both ears to try to get the dry skin out, and this has caused increase irritation. He denies any change in his hearing, pain in the ears, purulent drainage from the ears. He denies any fevers or chills, headache, neck pain, difficulty swallowing or breathing, chest pain, shortness of breath, nausea or vomiting. REVIEW OF SYSTEMS: A complete 10 point review of systems was reviewed with the patient with pertinent positives and negatives as per history of present illness. All else were negative. PMH: The patient is healthy; there is no significant medical or surgical history. He is not diabetic. SOCIAL HISTORY: Patient lives at home. He is a current every day smoker. PHYSICAL EXAM: Vital Signs: Reviewed Nurse's notes. CONSTITUTIONAL: No acute distress. Dry skin and appears dehydrated. Strong smell of cigarette smoke. HEENT: Normocephalic, atraumatic. Pupils equal, round and reactive to light, EOMI. TMs normal, bilateral ear canals with dry skin and scabbing noted, no erythema or purulent drainage noted. Pharynx normal. Dry mucous membranes. No periapical abscess or gingivitis noted. FACE: There is an indurated area noted to the left lower jaw which measures about 2 cm in diameter. It is fluctuant but there is no pointing or drainage. There is a zone of inflammation around it but no lymphangitis. NECK: Supple, full active range of motion without discomfort. No cervical adenitis. RESPIRATORY: Clear to auscultation bilaterally with no wheezing, crackles, rhonchi or stridor. Equal expansion bilaterally. CARDIOVASCULAR: Regular rate and rhythm with no murmurs, rubs or gallops. Normal peripheral perfusion. No edema. GASTROINTESTINAL: Soft, nontender, nondistended. No palpable masses or HSM. Bowel sounds present in all quadrants. MUSCULOSKELETAL: Full range of motion of all joints without discomfort. INTEGUMENTARY: No rash or other significant dermatologic conditions noted. NEUROLOGIC: Alert and oriented X 4 with normal affect.Cranial nerves II-XII grossly intact. No focal neurologic deficits noted. EMERGENCY DEPARTMENT COURSE: I examined the patient. Differential diagnosis includes abscess, cellulitis, ingrown hair, dental abscess, dehydration, dry skin, eczema, allergic conjunctivitis, viral versus bacterial conjunctivitis, otitis externa, allergic reaction, among others. Patient's skin findings around the ears, eyes, and on the face appears consistent with atopic dermatitis /eczema. He has bilateral mild conjunctivitis with clear discharge, no vision changes. There is an abscess noted to the left lower jaw, very tender to palpation and fluctuant. I discussed risks and benefits of the procedure with the patient., He provided verbal consent for the procedure to be performed. The area was cleansed using saline and Betadine. The area was anesthetized using 1% lidocaine with epinephrine, with good anesthesia. Utilizing sterile technique, the abscess cavity was incised with a #11 scalpel blade. Purulent material drained and more was expressed. The abscess cavity was then flushed with saline, dried, bacitracin ointment was applied, and covered with a Band-Aid. The patient was provided with a sterile syringe and instructed to flush the abscess twice a day. Patient tolerated the procedure well with no complaints. Patient was instructed on wound care and follow-up, as well as strict return precautions should his symptoms worsen or any signs of worsening infection, he verbalized understanding. Patient was also instructed on management of his allergic symptoms. He was provided with a list of primary care providers by the corrections caseworker to help establish a new PCP, as he reports he has recently moved to the area. The patient was discharged home in stable condition and ambulatory. Problem List Medical Problems: (1) Acute epididymitis Status: Resolved (2) Acute urinary tract infection Status: Resolved (3) Alcohol abuse Status: Resolved (4) Back pain Status: Resolved (5) Benign hypertension Status: Chronic (6) Bipolar disorder Status: Chronic (7) Calculus of kidney and ureter Status: Resolved (8) Dehydration Status: Resolved (9) Dizziness Status: Resolved (10) Epididymal cyst Status: Resolved (11) Epididymitis Status: Resolved (12) Flank pain Status: Resolved (13) Gastroesophageal reflux disease Status: Chronic (14) Headache Status: Resolved (15) Headache Status: Resolved (16) Hypokalemia Status: Resolved (17) Insertion of stent into ureter Permanent Comment: L ureteral stent Dr. Guajardo 03/21/13 Status: Resolved (18) Kidney cysts Status: Resolved (19) Lung mass Permanent Comment: [facility] chest [facility] 03/01/13 3 mm RLL and 5 mm LLL nodules f/u recommended Status: Chronic (20) Migraine Status: Resolved (21) Palpitations Status: Chronic (22) Strain of thoracic region Status: Resolved (23) Testicular pain Status: Resolved (24) Testicular pain Status: Resolved (25) Tobacco user Status: Chronic (26) Ulcer Status: Resolved (27) Vomiting Status: Resolved (28) Vomiting Status: Resolved Current/Historical Medications Scheduled Aspirin (Aspirin Ec), 81 MG PO DAILY Atorvastatin (Atorvastatin Calcium), 40 MG PO DAILY Metoprolol Succinate (Metoprolol Succinate ER), 25 MG PO DAILY Nitroglycerin (Nitrostat), 0.4 MG UT PRN Allergies Coded Allergies: Naproxen (Verified Allergy, Intermediate, hives, 10/01/17) Gabapentin (Verified Allergy, Mild, hives, 10/01/17) Acellular Pertussis (Unverified Allergy, Unknown, CELLULITIS, 10/01/17) Aluminum Phosphate (Unverified Allergy, Unknown, CELLULITIS, 10/01/17) Diphtheria Toxoid (Unverified Allergy, Unknown, CELLULITIS, 10/01/17) Penicillins (Verified Allergy, Unknown, RASH, 10/01/17) Phenoxyethanol (Unverified Allergy, Unknown, CELLULITIS, 10/01/17) Tetanus Toxoid (Unverified Allergy, Unknown, CELLULITIS, 10/01/17) Tramadol (Verified Allergy, Unknown, HIVES, 10/01/17) Vital Signs Date Time Temp Pulse Resp B/P (MAP) Pulse Ox O2 Delivery O2 Flow Rate FiO2 10/02/17 01:03 70 16 133/92 97 Room Air 10/01/17 22:12 36.7 86 18 147/107 97 Room Air Departure Information Impression Primary Impression: Abscess of face Additional Impressions: Eczema of face Allergic conjunctivitis Dispostion Home / Self-Care Condition GOOD Referrals No Doctor, Assigned (PCP) Patient Instructions ED Abscess IandD, ED Allergic Conjunctivitis, ED Dermatitis Atopic Eczema, [facility] Additional Instructions You were seen in the Emergency Department for Incision and Drainage of your facial abscess. Proper wound care is essential for adequate wound healing and infection prevention. You can shower and clean the wound with soap and water. Do not scour over the wound. Pat dry with a towel. Do not submerse the wound (i.e. bathe or dish wash) until the sutures have been removed. You can use an antibiotic ointment with a dressing over the wound for the next 3-4 days. After this time you may leave the wound dry and open to the air. If crust develops over the wound you can use a Q-tip to apply a 1:1 peroxide:water solution to clean the wound. As with any laceration you may have received nerve damage to the surrounding tissues. This damage may or may not be permanent. For pain control, you can use the following [id number] medicines (if >12 yo): - Extra strength (500mg/tab) Tylenol (acetaminophen) 1-2 tabs every 6-8 hours as needed. Do not exceed 6 tablets in a 24 hour period. Avoid taking more than 3 grams (3000 mg) of Tylenol per day. This includes any other sources of acetaminophen you may take on a regular basis. - Regular strength (200 mg/tab) Advil (ibuprofen) 3 tabs every 6-8 hours as needed. Do not exceed a dose of 2400 mg per day. Use [id number] eye drops for allergy or red eye to help improve your eye irritation. Clean the eyes twice a day with warm washcloth, wiping down and outward. Start taking a daily antihistamine such as Claritin or Zyrtec to help with your allergy symptoms. Do not dig in your ears or pick at dry skin, as this can cause further irritation and infections. Please establish with a primary care provider from the list provided, and follow up in the next week. Look for signs of worsening infection of the wound including: increased pain, swelling, foul discharge, streaking, or increased temperature. If any of these are noticed you should return to the Emergency Department for further assessment and treatment. Problem Qualifiers Additional Impressions: Allergic conjunctivitis Laterality: bilateral Qualified Codes: H10.13 - Acute atopic conjunctivitis , bilateral
[2017-10-02 01:03] VITALS: BP 133/92; PULSE 70; O2SAT 97
== END 2017-10-02 01:15 | disposition home or self-care (01) ==
LOC: C.EDB 22:12
DX: L02.01 Cutaneous abscess of face (principal); L30.9 Dermatitis, unspecified; H10.11 Acute atopic conjunctivitis, right eye; I10 Essential (primary) hypertension; F31.9 Bipolar disorder, unspecified; K21.9 Gastro-esophageal reflux disease without esophagitis; F17.200 Nicotine dependence, unspecified, uncomplicated; Z87.440 Personal history of urinary (tract) infections; Z87.442 Personal history of urinary calculi; Z79.82 Long term (current) use of aspirin; Z79.899 Other long term (current) drug therapy; Z88.0 Allergy status to penicillin; Z88.8 Allergy status to other drugs, medicaments and biological substances

== ENCOUNTER 2019-10-08 23:07 | Observation (INO) ==
[2019-10-08] MEDS ORDERED: NITROGLYCERIN 2% OINTMENT 30GM TUBE EXT ONE (23:22)
[2019-10-08 23:29] LABS: Basophils # (auto) 0.03 K/uL (0-0.2); Basophils % (auto) 0.3 %; Eosinophils # (auto) 0.24 K/uL (0-0.5); Eosinophils % (auto) 2.6 %; Hematocrit (blood only) 46.1 % (42-52); Hemoglobin 16.5 g/dL (14.0-18.0); Immature Granulocytes # (auto) 0.03 K/uL (0.00-0.02); Immature Granulocytes % (auto) 0.3 %; Lymphocytes % (auto) 34.8 %; Mean Corpuscular Hemoglobin 32.4 pg (25-34); Mean Corpuscular Hgb Conc 35.8 g/dL (32-36); Mean Corpuscular Volume 90.4 fL (80-100); Mean Platelet Volume 9.5 fL (7.4-10.4); Monocytes # (auto) 0.62 K/uL (0.11-0.59); Monocytes % (auto) 6.7 %; Neutrophils # (auto) 5.07 K/uL (1.4-6.5); Neutrophils % (auto) 55.3 %; Platelet Count 310 K/uL (130-400); RDW Coefficient of Variation 12.7 % (11.5-14.5); RDW Standard Deviation 41.6 fL (36.4-46.3); White Blood Count 9.19 K/uL (4.8-10.8)
[2019-10-08] MEDS ORDERED: SODIUM CHLORIDE 0.9% 1000ML 1,000 ML IV SCH (23:30)
[2019-10-08 23:43] LABS: D Dimer 220 ug/L FEU (0-500)
[2019-10-08 23:49] LABS: Alanine Aminotransferase 38 U/L (12-78); Albumin Level 3.8 gm/dl (3.4-5.0); Aspartate Aminotransferase 24 U/L (15-37); BUN Creatinine Ratio 8.7 (10-20); Blood Urea Nitrogen 9 mg/dl (7-18); Calcium 8.9 mg/dl (8.5-10.1); Carbon Dioxide 23 mmol/L (21-32); Chloride 108 mmol/L (98-107); Creatinine Clr Calc Pharmacy 93.5 ml/min; Est GFR (African American) 99.6; Est GFR (Non-African American) 85.9; Glucose 113 mg/dl (70-99); Lipase 1270 U/L (73-393); Magnesium 2.4 mg/dl (1.8-2.4); Potassium 3.7 mmol/L (3.5-5.1); Sodium 141 mmol/L (136-145)
[2019-10-09] LABS: Albumin Globulin Ratio 0.9 (0.9-2); Alkaline Phosphatase 140 U/L (45-117); Bilirubin,Total 0.4 mg/dl (0.2-1); Globulin 4.1 gm/dl (2.5-4.0); Thyroid Stimulating Hormone 0.308 uIu/ml (0.300-4.500); Total Protein 7.9 gm/dl (6.4-8.2); Troponin I < 0.015 ng/ml (0-0.045)
[2019-10-09 00:24] LABS: Appearance Urine Clear (Clear); Bilirubin Urine Negative (Negative); Blood Urine Negative (Negative); Color Urine Yellow; Glucose Urine UA Negative (Negative); Ketones Urine Trace (Negative); Leukocyte Esterase Urine Negative (Negative); Nitrite Urine Negative (Negative); Protein Urine Negative (Negative); Specific Gravity Urine 1.017 (1.000-1.030); Urobilinogen Urine Negative (Negative)
[2019-10-09 00:47] LABS: Amphetamines+Metham, Urine Neg (Neg); Barbiturates, Urine Neg (Neg); Benzodiazepine, Urine Neg (Neg); Cocaine, Urine Neg (Neg); MDMA (Ecstacy), Urine Neg (Neg); Methadone, Urine Neg (Neg); Opiate, Urine Neg (Neg); Phencyclidine, Urine Neg (Neg)
[2019-10-09] MEDS ORDERED: METOPROLOL SUCC 50MG EXT REL TAB PO STA (02:12)
[2019-10-09] MEDS ORDERED: NITROGLYCERIN SL 0.4 MG/TAB TAB SL PRN (03:06)
[2019-10-09] MEDS ORDERED: LORazepam 0.25 MG/0.5 ML VIAL IV PRN (03:06)
[2019-10-09] MEDS ORDERED: LACTATED RINGER'S 1,000 ML IV ONE (03:06)
[2019-10-09] MEDS ORDERED: ACETAMINOPHEN 325 MG TAB PO PRN (03:06)
[2019-10-09] MEDS ORDERED: OXYCODONE HCL IR 5 MG TAB (IMMEDIATE RELEASE) PO PRN (03:06)
[2019-10-09] MEDS ORDERED: MoRPHine SULFATE 4 MG/ML 1 ML CARP\\VIAL IV PRN (03:06)
[2019-10-09 04:37] LABS: Basophils # (auto) 0.03 K/uL (0-0.2); Basophils % (auto) 0.4 %; Eosinophils # (auto) 0.36 K/uL (0-0.5); Hematocrit (blood only) 40.9 % (42-52); Hemoglobin 14.3 g/dL (14.0-18.0); Immature Granulocytes # (auto) 0.05 K/uL (0.00-0.02); Immature Granulocytes % (auto) 0.7 %; Lymphocytes # (auto) 2.74 K/uL (1.2-3.4); Lymphocytes % (auto) 38.1 %; Mean Corpuscular Hemoglobin 31.8 pg (25-34); Mean Corpuscular Volume 91.1 fL (80-100); Mean Platelet Volume 9.4 fL (7.4-10.4); Monocytes # (auto) 0.58 K/uL (0.11-0.59); Monocytes % (auto) 8.1 %; Neutrophils # (auto) 3.44 K/uL (1.4-6.5); Neutrophils % (auto) 47.7 %; Platelet Count 267 K/uL (130-400); RDW Coefficient of Variation 12.8 % (11.5-14.5); RDW Standard Deviation 42.5 fL (36.4-46.3); Red Blood Count 4.49 M/uL (4.7-6.1)
[2019-10-09 04:46] LABS: Partial Thromboplastin Time 26.4 Seconds (21.0-31.0)
[2019-10-09 05:03] LABS: Albumin Level 3.3 gm/dl (3.4-5.0); BUN Creatinine Ratio 16.5 (10-20); Calcium 8.4 mg/dl (8.5-10.1); Est GFR (African American) 113.8; Est GFR (Non-African American) 98.2; Potassium 4.1 mmol/L (3.5-5.1)
[2019-10-09 05:06] LABS: Albumin Globulin Ratio 0.9 (0.9-2); Bilirubin,Total 0.2 mg/dl (0.2-1); Globulin 3.5 gm/dl (2.5-4.0); Total Protein 6.8 gm/dl (6.4-8.2)
--- NOTE | 2019-10-09 05:20 | Emergency Department Note ---
History of Present Illness General Chief complaint: Chest Pain Stated complaint: chest pain Time Seen by Provider: 10/08/19 23:11 History of Present Illness Maximum Pain Intensity: 0 This is a 44-year-old male presenting to the emergency department for evaluation of chest pain that began at home just prior to arrival. The patient arrives via ambulance for his complaints. Evidently he was at home and drank a few beers. Shortly afterwards he began having 10/10 substernal chest pain, and contacted 911. Upon EMS arrival, EMS states that he was diaphoretic and laying on the ground in a worrisome position. They immediately gave him nitroglycerin x3, and he had almost immediate improvement of his symptoms. The patient does have a poor family history of cardiac disease, and evidently his mother had cardiac issues in her 30s. The patient has been seen in the past few years at other facilities, where catheterization was recommended, but the patient refused. The patient does smoke but denies drug use. He rates his current discomfort a 0/10. Home Medications Home Medications Medication Instructions Recorded Confirmed Type No Known Home Medications 10/09/19 10/09/19 History Allergies Allergy/AdvReac Type Severity Reaction Status Date / Time naproxen Allergy Intermediate hives Verified 03/08/19 23:40 gabapentin Allergy Mild hives Verified 03/08/19 23:40 aluminum Allergy Unknown CELLULITIS Verified 03/08/19 23:40 diphtheria toxoid,fluid Allergy Unknown CELLULITIS Verified 03/08/19 23:40 Penicillins Allergy Unknown RASH Verified 03/08/19 23:40 Pertussis Vaccines Allergy Unknown CELLULITIS Verified 03/08/19 23:40 tetanus toxoid, adsorbed Allergy Unknown CELLULITIS Verified 03/08/19 23:40 tramadol Allergy Unknown HIVES Verified 03/08/19 23:40 Phenoxyethanol Allergy Unknown CELLULITIS Uncoded 03/08/19 23:40 Past Med/Surg History Surgical History (Updated 05/12/19 @ 13:04 by Pedro Boykin) History of decompression of both ulnar nerves Social History (Updated 10/02/19 @ 01:13 by Kristal Boston) Preferred Language: German Communication Ability: Effective Supervisor Cigar Making Machine Required: No Beliefs That Will Affect Care: None marital status: Single Current Living Situation: Significant Other current occupational status: employed Other Information That Helps Us Care for You: No Feels Safe at Home: Yes Safety Concerns: Feels Safe At This Time Smoking Status: Heavy tobacco smoker Tobacco Type: cigarettes ; Cigarettes Per Day: 40 ; Hx Alcohol Use: Yes Alcohol type: beer Hx Substance Use: No Review of Systems A total of 10 systems reviewed and were otherwise negative Physical Exam Vital Signs Vital Signs - 24 hr 10/08/19 23:13 10/08/19 23:15 10/08/19 23:39 Temperature 36.7 C Temperature Source Oral Pulse Rate 107 H 107 H Pulse Rate from SpO2 Sensor 107 H Respiratory Rate 16 22 Respiratory Effort / Characteristics Non-Labored Respiratory Depth Normal Blood Pressure 133/65 133/65 Blood Pressure Mean 92 87 Blood Pressure Position Lying Pulse Oximetry 95 95 95 Oxygen Delivery Method Room Air Room Air Sepsis Recent Fever Within 48 Hours Yes Sepsis Action Taken by Nursing No Action Required 10/09/19 00:16 10/09/19 00:30 10/09/19 01:00 Temperature Temperature Source Pulse Rate 92 H 89 97 H Pulse Rate from SpO2 Sensor 94 H 90 98 H Respiratory Rate 16 21 19 Respiratory Effort / Characteristics Respiratory Depth Blood Pressure 117/74 101/64 101/77 Blood Pressure Mean 82 77 81 Blood Pressure Position Pulse Oximetry 96 94 93 Oxygen Delivery Method Sepsis Recent Fever Within 48 Hours Sepsis Action Taken by Nursing 10/09/19 01:30 10/09/19 02:00 Temperature Temperature Source Pulse Rate 96 H 97 H Pulse Rate from SpO2 Sensor 97 H Respiratory Rate 24 16 Respiratory Effort / Characteristics Respiratory Depth Blood Pressure 126/94 117/66 Blood Pressure Mean 99 83 Blood Pressure Position Pulse Oximetry Oxygen Delivery Method Sepsis Recent Fever Within 48 Hours Sepsis Action Taken by Nursing VITALS: Vitals are noted on the nurse's note and reviewed by myself. Vital signs stable. GENERAL: Well-developed, well-nourished, white male, who is in no acute distress and resting comfortably. Patient is cooperative with the examination. HEAD: Normocephalic atraumatic. EARS: External ear normal. External auditory canals clear, tympanic membranes pearly waller without erythema or effusion bilaterally. EYES: Pupils equal round and reactive to light and accommodation. Conjunctivae without injection, sclerae without icterus. Extraocular movements intact. NOSE: Patent, turbinates without inflammation or discharge. MOUTH: Mucous membranes moist. Tonsils are not enlarged. Pharynx without erythema, blood, or exudate. Uvula midline. Airway patent. NECK: Supple without nuchal rigidity. No lymphadenopathy. No thyromegaly. Cervical spine is nontender. HEART: Regular rate and rhythm without murmurs gallops or rubs. LUNGS: Clear to auscultation bilaterally without wheezes, rales or rhonchi. No retractions or accessory muscle use. ABDOMEN: Positive normal bowel sounds x 4. Soft, nontender, without masses or organomegaly. No guarding or rebound tenderness. MUSCULOSKELETAL: No muscle atrophy, erythema, or edema noted. Full range of motion in all extremities. NEURO: Patient was alert and oriented to person place and time. CN II through XII grossly intact. SKIN: The skin was without rashes, erythema, edema, or bruising. Capillary refill less than 2 seconds. Course Administered Medications Lactated Ringer's (Lr) 1,000 mls @ 80 mls/hr IV .[id number] ONE Stop: 10/09/19 15:35 Last Admin: 10/09/19 04:26 Dose: 80 mls/hr Documented by: [id number] Discontinued Medications Sodium Chloride (Nss 1000ml) 1,000 mls @ 999 mls/hr IV .[id number] FRANCIA Stop: 10/09/19 00:30 Last Infusion: 10/09/19 01:01 Dose: 0 mls/hr Documented by: [id number] Admin: 10/08/19 23:36 Dose: 999 mls/hr Documented by: [id number] Metoprolol Succinate (Toprol Xl) 25 mg PO NOW STA Stop: 10/09/19 02:13 Last Admin: 10/09/19 02:48 Dose: 25 mg Documented by: [id number] Nitroglycerin (Nitro-Bid 2%) 1 inch EXT NOW ONE Stop: 10/08/19 23:23 Last Admin: 10/08/19 23:36 Dose: 1 inch Documented by: [id number] Medical Decision Making Differential Diagnosis Differential diagnosis includes, but is not limited to: Myocardial infarction, dysrhythmia, pericarditis, pneumothorax, aortic aneurysm/dissection, DVT/PE, anxiety, GERD, PUD, electrolyte imbalance, thyroid disorder, pneumonia, bronchitis, pancreatitis, and others Laboratory Data Result diagrams: 10/09/19 04:18 10/09/19 04:18 Lab Results 10/08/19 10/08/19 10/08/19 Range/Units 23:18 23:18 23:18 WBC 9.19 (4.8-10.8) K/uL RBC 5.10 (4.7-6.1) M/uL Hgb 16.5 (14.0-18.0) g/dL Hct 46.1 (42-52) % MCV 90.4 (80-100) fL MCH 32.4 (25-34) pg MCHC 35.8 (32-36) g/dL RDW Std Deviation 41.6 (36.4-46.3) fL RDW Coeff of Karissa 12.7 (11.5-14.5) % Plt Count 310 (130-400) K/uL MPV 9.5 (7.4-10.4) fL Immature Gran % (Auto) 0.3 % Neut % (Auto) 55.3 % Lymph % (Auto) 34.8 % [place] % (Auto) 6.7 % Eos % (Auto) 2.6 % Baso % (Auto) 0.3 % Immature Gran # (Auto) 0.03 H (0.00-0.02) K/uL Neut # (Auto) 5.07 (1.4-6.5) K/uL Lymph # (Auto) 3.20 (1.2-3.4) K/uL [place] # (Auto) 0.62 H (0.11-0.59) K/uL Eos # (Auto) 0.24 (0-0.5) K/uL Baso # (Auto) 0.03 (0-0.2) K/uL D-Dimer 220 (0-500) ug/L FEU Sodium 141 (136-145) mmol/L Potassium 3.7 (3.5-5.1) mmol/L Chloride 108 H (98-107) mmol/L Carbon Dioxide 23 (21-32) mmol/L Anion Gap 10.0 (3-11) BUN 9 (7-18) mg/dl Creatinine 1.05 (0.6-1.4) mg/dl Est Cr Clr Drug Dosing 93.5 ml/min Est GFR ( Amer) 99.6 Est GFR (Non-Af Amer) 85.9 BUN/Creatinine Ratio 8.7 L (10-20) Glucose 113 H (70-99) mg/dl Calcium 8.9 (8.5-10.1) mg/dl Magnesium 2.4 (1.8-2.4) mg/dl Total Bilirubin 0.4 (0.2-1) mg/dl AST 24 (15-37) U/L ALT 38 (12-78) U/L Alkaline Phosphatase 140 H (45-117) U/L Troponin I < 0.015 (0-0.045) ng/ml Total Protein 7.9 (6.4-8.2) gm/dl Albumin 3.8 (3.4-5.0) gm/dl Globulin 4.1 H (2.5-4.0) gm/dl Albumin/Globulin Ratio 0.9 (0.9-2) Lipase 1270 H (73-393) U/L TSH 0.308 (0.300-4.500) uIu/ml Urine Color Urine Appearance (Clear) Urine pH (4.5-7.5) Ur Specific [place] (1.000-1.030) Urine Protein (Negative) Urine Glucose (UA) (Negative) Urine Ketones (Negative) Urine Blood (Negative) Urine Nitrite (Negative) Urine Bilirubin (Negative) Urine Urobilinogen (Negative) Ur Leukocyte Esterase (Negative) Urine Opiates Screen (Neg) Ur Methadone, Qual (Neg) Urine Barbiturates (Neg) Ur Phencyclidine (PCP) (Neg) U Amphetamin/Meth Scrn (Neg) MDMA (Ecstasy) Screen (Neg) U Benzodiazepines Scrn (Neg) Ur Cocaine Metabolite (Neg) U Marijuana (THC) Screen (Neg) Ethyl Alcohol mg/dL (0-3) mg/dl 10/08/19 10/09/19 10/09/19 Range/Units 23:59 00:15 00:15 WBC (4.8-10.8) K/uL RBC (4.7-6.1) M/uL Hgb (14.0-18.0) g/dL Hct (42-52) % MCV (80-100) fL MCH (25-34) pg MCHC (32-36) g/dL RDW Std Deviation (36.4-46.3) fL RDW Coeff of Karissa (11.5-14.5) % Plt Count (130-400) K/uL MPV (7.4-10.4) fL Immature Gran % (Auto) % Neut % (Auto) % Lymph % (Auto) % [place] % (Auto) % Eos % (Auto) % Baso % (Auto) % Immature Gran # (Auto) (0.00-0.02) K/uL Neut # (Auto) (1.4-6.5) K/uL Lymph # (Auto) (1.2-3.4) K/uL [place] # (Auto) (0.11-0.59) K/uL Eos # (Auto) (0-0.5) K/uL Baso # (Auto) (0-0.2) K/uL D-Dimer (0-500) ug/L FEU Sodium (136-145) mmol/L Potassium (3.5-5.1) mmol/L Chloride (98-107) mmol/L Carbon Dioxide (21-32) mmol/L Anion Gap (3-11) BUN (7-18) mg/dl Creatinine (0.6-1.4) mg/dl Est Cr Clr Drug Dosing ml/min Est GFR ( Amer) Est GFR (Non-Af Amer) BUN/Creatinine Ratio (10-20) Glucose (70-99) mg/dl Calcium (8.5-10.1) mg/dl Magnesium (1.8-2.4) mg/dl Total Bilirubin (0.2-1) mg/dl AST (15-37) U/L ALT (12-78) U/L Alkaline Phosphatase (45-117) U/L Troponin I (0-0.045) ng/ml Total Protein (6.4-8.2) gm/dl Albumin (3.4-5.0) gm/dl Globulin (2.5-4.0) gm/dl Albumin/Globulin Ratio (0.9-2) Lipase (73-393) U/L TSH (0.300-4.500) uIu/ml Urine Color Yellow Urine Appearance Clear (Clear) Urine pH 5.0 (4.5-7.5) Ur Specific [place] 1.017 (1.000-1.030) Urine Protein Negative (Negative) Urine Glucose (UA) Negative (Negative) Urine Ketones Trace H (Negative) Urine Blood Negative (Negative) Urine Nitrite Negative (Negative) Urine Bilirubin Negative (Negative) Urine Urobilinogen Negative (Negative) Ur Leukocyte Esterase Negative (Negative) Urine Opiates Screen Neg (Neg) Ur Methadone, Qual Neg (Neg) Urine Barbiturates Neg (Neg) Ur Phencyclidine (PCP) Neg (Neg) U Amphetamin/Meth Scrn Neg (Neg) MDMA (Ecstasy) Screen Neg (Neg) U Benzodiazepines Scrn Neg (Neg) Ur Cocaine Metabolite Neg (Neg) U Marijuana (THC) Screen Neg (Neg) Ethyl Alcohol mg/dL 90.8 H (0-3) mg/dl ECG Data Additional Comments: Sinus tachycardia @[address] elevation Otherwise normal ECG When compared with ECG of 18-JUL-2018 23:43, No significant change was found MDM Narrative Physical exam and history were performed. Nursing notes, EMR, and Medication List were personally reviewed. Patient appears to have chest pain that was rated a 10/10 that completely resolved with nitroglycerin prehospital. On examination the patient does not appear toxic. IV access was established and labs were obtained. He was hydrated with normal saline. Nitropaste was applied. He was put on the radiographer cardiac catheterization. Chest x-ray was performed. The patient's blood work is as above and was reviewed. He does not have a significantly elevated white blood cell count, gross anemia, bandemia, or significant electrolyte imbalance. His lipase is elevated at over 1200, however he is without significant abdominal pain. Transaminases are without distinct diagnosis. Troponin x1 is negative. D-dimer is negative. Alcohol is slightly elevated at 90. Patient remained in normal sinus rhythm on the radiographer cardiac catheterization with a rate in the 90s. On reevaluation the patient was resting very comfortably in his ER bed. I discussed further options of care with the patient, and I do have concern for his wellbeing. He does seem to have anginal symptoms based on the forming machine operator report, and evidently did seem very diaphoretic and unwell upon their arrival to his home. Thankfully this seems to have resolved, but he may benefit from further inpatient evaluation. The case was discussed with the on-call hospitalist team who agreed to evaluate the patient here in the department. Please see their dictation for further patient course, plan, and disposition. The chart was completed utilizing [employer] Speech Voice Recognition Software. Grammatical errors, random word insertions, pronoun errors, and incomplete sentences are an occasional consequence of this system due to software limitations, ambient noise, and hardware issues. Any formal questions or concerns about the content, text, or information contained within the body of this dictation should be directly addressed to the provider for clarification. . Impression & Plan Substernal chest pain, Elevated lipase, Alcohol use Discharge Plan Visit Data *Final* Discharge Date/Time: 10/09/19 02:53 Chief Complaint: Chest Pain Stated Complaint: chest pain ED Provider: Liz Coyne ED Midlevel Provider: Jameson Jalloh Discharge Problem: Substernal chest pain, Elevated lipase, Alcohol use Patient Disposition: Admitted As Inpatient Discharge Instructions Interventions: ED Discharge Assessment Last Done: 10/09/19 02:53
--- NOTE | 2019-10-09 05:47 | XRay Report ---
XR chest 2V PA/lateral CLINICAL HISTORY: chest pains dyspnea COMPARISON STUDY: 07/18/2018 FINDINGS: The bones soft tissues and hemidiaphragms are normal. The cardiomediastinal silhouette is n ormal. The lungs are clear. The pulmonary vasculature is normal. IMPRESSION: Negative chest. ACT 112: Negative or not required by law. The above report was generated using voice recognition software. It may contain grammatical, syntax or spelling errors. Electronically signed by: Rock Knowles M.D. 10/09/2019 5:46 AM
--- NOTE | 2019-10-09 06:29 | History & Physical Report ---
Date of Service October 09, 2019 Assessment & Plan (1) Chest pain: Relieved by nitroglycerin Rule out ACS in a male patient with notable risk factors for ischemic heart disease Hypertension, elevated Possibly chronic given LVH on 2D echo from 2017 palpitations as per records, patient noncompliant with home beta-lala Rx hyperlipidemia, statin noncompliance mood disorder as per records, at baseline Asymptomatic hyperlipasemia Recent EtOH intake past alcohol abuse as per records Hyperglycemia rule out DM ongoing tobacco abuse OBS PCU Follow troponin TTE, Cardiology consult RE chest pain Aspirin for CAD prevention until ACS ruled out. Resume patient's home beta-lala and statin Rx Check lipid profile, check hemoglobin A1c Nicotine patch PRN DVT prophylaxis. Lovenox subcu Full code History of Present Illness Chief Complaint: Chest pain Primary Care Provider: Blake Hummel MD History obtained from patient and records. Medical history significant for palpitations as per records, hyperlipidemia, mood disorder as per records, past alcohol abuse, ongoing tobacco abuse, medication noncompliance. Recent confinement June 2017 for chest pain attributed to stress/anxiety. Patient seen at the ER last week for dehydration/gastroenteritis. Symptoms resolved. Last night, patient experienced achy intense substernal pain radiating to the left shoulder with S OB and diaphoreses. No cough, no abdominal pain, no nausea/emesis symptoms. Discomfort relieved by aspirin and nitroglycerin administration by EMS. Patient has not been taking home BP and cholesterol meds the last few years because "he has not been doctoring." Patient currently comfortable. MEDICAL HISTORY: As above. SURGERIES: He has had knee surgery, urologic procedures upper arm and elbow surgery. FAMILY HISTORY: Heart disease. 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 Allergies Allergy/AdvReac Type Severity Reaction Status Date / Time naproxen Allergy Intermediate hives Verified 03/08/19 23:40 gabapentin Allergy Mild hives Verified 03/08/19 23:40 aluminum Allergy Unknown CELLULITIS Verified 03/08/19 23:40 diphtheria toxoid,fluid Allergy Unknown CELLULITIS Verified 03/08/19 23:40 Penicillins Allergy Unknown RASH Verified 03/08/19 23:40 Pertussis Vaccines Allergy Unknown CELLULITIS Verified 03/08/19 23:40 tetanus toxoid, adsorbed Allergy Unknown CELLULITIS Verified 03/08/19 23:40 tramadol Allergy Unknown HIVES Verified 03/08/19 23:40 Phenoxyethanol Allergy Unknown CELLULITIS Uncoded 03/08/19 23:40 Home Medications Home Medications Medication Instructions Recorded Confirmed Type No Known Home Medications 10/09/19 10/09/19 History Past Med/Surg History Surgical History (Updated 05/12/19 @ 13:04 by Pedro Boykin) History of decompression of both ulnar nerves Social History (Updated 10/02/19 @ 01:13 by Kristal Boston) Preferred Language: Albanian Communication Ability: Effective Radiology Administrator Required: No Beliefs That Will Affect Care: None marital status: Single Current Living Situation: Significant Other current occupational status: employed Other Information That Helps Us Care for You: No Feels Safe at Home: Yes Safety Concerns: Feels Safe At This Time Smoking Status: Heavy tobacco smoker Tobacco Type: cigarettes ; Cigarettes Per Day: 40 ; Hx Alcohol Use: Yes Alcohol type: beer Hx Substance Use: No Review of Systems Review of Systems: As per HPI, all 10 systems reviewed, all other ROS negative Physical Exam Physical Exam: GENERAL: Comfortable, pleasantly intoxicated, no respiratory distress SKIN: Normal color, warm, multiple tattoos on extremities HEENT: [place] palpebral conjunctivae, no ptosis, dry buccal mucosa NECK : Supple, no tenderness CHEST : CTA, no tenderness HEART : RRR, no obvious murmurs ABDOMEN: Some distention, nontender EXTREMITIES : No LE swelling/tenderness, no other conspicuous deformities noted NEUROLOGIC : Coherent, no facial asymmetry, no other gross focality Results & Data Vital Signs (Past 12 Hours) Vital Signs Temp Pulse Pulse Resp BP BP Pulse Ox 10/09/19 04:40 98 H 10/09/19 03:08 36.4 C L 86 16 147/91 H 95 10/09/19 02:30 82 23 121/85 96 10/09/19 02:00 97 H 16 117/66 10/09/19 01:30 96 H 24 126/94 10/09/19 01:00 97 H 19 101/77 93 10/09/19 00:30 89 21 101/64 94 10/09/19 00:16 92 H 16 117/74 96 10/08/19 23:39 95 10/08/19 23:15 36.7 C 107 H 22 133/65 95 10/08/19 23:13 107 H 16 133/65 95 Laboratory Results Laboratory Results WBC 7.20 K/uL (4.8-10.8) 10/09/19 04:18 RBC 4.49 M/uL (4.7-6.1) L 10/09/19 04:18 Hgb 14.3 g/dL (14.0-18.0) 10/09/19 04:18 Hct 40.9 % (42-52) L 10/09/19 04:18 MCV 91.1 fL (80-100) 10/09/19 04:18 MCH 31.8 pg (25-34) 10/09/19 04:18 MCHC 35.0 g/dL (32-36) 10/09/19 04:18 RDW Std Deviation 42.5 fL (36.4-46.3) 10/09/19 04:18 RDW Coeff of Karissa 12.8 % (11.5-14.5) 10/09/19 04:18 Plt Count 267 K/uL (130-400) 10/09/19 04:18 MPV 9.4 fL (7.4-10.4) 10/09/19 04:18 Immature Gran % (Auto) 0.7 % 10/09/19 04:18 Neut % (Auto) 47.7 % 10/09/19 04:18 Lymph % (Auto) 38.1 % 10/09/19 04:18 [place] % (Auto) 8.1 % 10/09/19 04:18 Eos % (Auto) 5.0 % 10/09/19 04:18 Baso % (Auto) 0.4 % 10/09/19 04:18 Immature Gran # (Auto) 0.05 K/uL (0.00-0.02) H 10/09/19 04:18 Neut # (Auto) 3.44 K/uL (1.4-6.5) 10/09/19 04:18 Lymph # (Auto) 2.74 K/uL (1.2-3.4) 10/09/19 04:18 [place] # (Auto) 0.58 K/uL (0.11-0.59) 10/09/19 04:18 Eos # (Auto) 0.36 K/uL (0-0.5) 10/09/19 04:18 Baso # (Auto) 0.03 K/uL (0-0.2) 10/09/19 04:18 APTT 26.4 Seconds (21.0-31.0) 10/09/19 04:18 PTT Ratio 1.0 10/09/19 04:18 D-Dimer 220 ug/L FEU (0-500) 10/08/19 23:18 Sodium 140 mmol/L (136-145) 10/09/19 04:18 Potassium 4.1 mmol/L (3.5-5.1) 10/09/19 04:18 Chloride 110 mmol/L (98-107) H 10/09/19 04:18 Carbon Dioxide 26 mmol/L (21-32) 10/09/19 04:18 Anion Gap 4.0 (3-11) 10/09/19 04:18 BUN 15 mg/dl (7-18) D 10/09/19 04:18 Creatinine 0.94 mg/dl (0.6-1.4) 10/09/19 04:18 Est Cr Clr Drug Dosing 104.0 ml/min 10/09/19 04:18 Est GFR ( Amer) 113.8 10/09/19 04:18 Est GFR (Non-Af Amer) 98.2 10/09/19 04:18 BUN/Creatinine Ratio 16.5 (10-20) 10/09/19 04:18 Glucose 98 mg/dl (70-99) 10/09/19 04:18 Calcium 8.4 mg/dl (8.5-10.1) L 10/09/19 04:18 Magnesium 2.4 mg/dl (1.8-2.4) 10/08/19 23:18 Total Bilirubin 0.2 mg/dl (0.2-1) 10/09/19 04:18 AST 22 U/L (15-37) 10/09/19 04:18 ALT 35 U/L (12-78) 10/09/19 04:18 Alkaline Phosphatase 123 U/L (45-117) H 10/09/19 04:18 Troponin I < 0.015 ng/ml (0-0.045) 10/09/19 04:18 Total Protein 6.8 gm/dl (6.4-8.2) 10/09/19 04:18 Albumin 3.3 gm/dl (3.4-5.0) L 10/09/19 04:18 Globulin 3.5 gm/dl (2.5-4.0) 10/09/19 04:18 Albumin/Globulin Ratio 0.9 (0.9-2) 10/09/19 04:18 Triglycerides 666 mg/dl (0-150) H 10/09/19 04:18 Cholesterol 220 mg/dl (0-200) H 10/09/19 04:18 LDL Cholesterol, Calc mg/dl 10/09/19 04:18 VLDL Cholesterol, Calc mg/dl 10/09/19 04:18 HDL Cholesterol 29 mg/dl 10/09/19 04:18 Cholesterol/HDL Ratio 8 10/09/19 04:18 Lipase 262 U/L (73-393) 10/09/19 04:18 TSH 0.308 uIu/ml (0.300-4.500) 10/08/19 23:18 Urine Color Yellow 10/09/19 00:15 Urine Appearance Clear (Clear) 10/09/19 00:15 Urine pH 5.0 (4.5-7.5) 10/09/19 00:15 Ur Specific [place] 1.017 (1.000-1.030) 10/09/19 00:15 Urine Protein Negative (Negative) 10/09/19 00:15 Urine Glucose (UA) Negative (Negative) 10/09/19 00:15 Urine Ketones Trace (Negative) H 10/09/19 00:15 Urine Blood Negative (Negative) 10/09/19 00:15 Urine Nitrite Negative (Negative) 10/09/19 00:15 Urine Bilirubin Negative (Negative) 10/09/19 00:15 Urine Urobilinogen Negative (Negative) 10/09/19 00:15 Ur Leukocyte Esterase Negative (Negative) 10/09/19 00:15 Urine Opiates Screen Neg (Neg) 10/09/19 00:15 Ur Methadone, Qual Neg (Neg) 10/09/19 00:15 Urine Barbiturates Neg (Neg) 10/09/19 00:15 Ur Phencyclidine (PCP) Neg (Neg) 10/09/19 00:15 U Amphetamin/Meth Scrn Neg (Neg) 10/09/19 00:15 MDMA (Ecstasy) Screen Neg (Neg) 10/09/19 00:15 U Benzodiazepines Scrn Neg (Neg) 10/09/19 00:15 Ur Cocaine Metabolite Neg (Neg) 10/09/19 00:15 U Marijuana (THC) Screen Neg (Neg) 10/09/19 00:15 Ethyl Alcohol mg/dL 90.8 mg/dl (0-3) H 10/08/19 23:59 Diagnostic Findings Chest x-ray as per my interpretation no congestion EKG as per my interpretation : Rate 105, sinus tachycardia, normal axis, no ischemia
[2019-10-09 07:41] LABS: Estimated Average Glucose 120 mg/dl; Hemoglobin A1C 5.8 % (4.5-5.6)
[2019-10-09] MEDS ORDERED: ASPIRIN 81 MG ECTAB PO SCH (09:00)
[2019-10-09] MEDS ORDERED: ATORVASTATIN 40 MG TAB PO SCH (09:00)
[2019-10-09] MEDS ORDERED: ENOXAPARIN INJ 40 MG/0.4 ML SYR SQ SCH (09:00)
--- NOTE | 2019-10-09 09:54 | Cardiology Consultation ---
Date of Consultation October 09, 2019 Assessment & Plan (1) Chest pain: EKG negative x1 on admission last night with findings of sinus tachycardia 106 bpm, no ischemic changes. Since telemetry has revealed sinus rhythm in the range of 70-80 bpm. Troponin has been negative x2 thus far. Proceed with exercise stress echocardiogram for further risk stratification pending scheduling. (2) Elevated lipase: Lipase was elevated at 1270 units/L on presentation, normalized this morning. Currently no abdominal symptoms. (3) Alcohol use: Toxicology screen is negative with exception of alcohol level of 90.8 mg/dL. This is actually improved compared to his alcohol level when he presented in July 2018 which was 149. He states he does not drink every day. (4) Dyslipidemia: Total cholesterol level had been 220 this morning, triglyceride level 666, HDL level 29. His HDL level is therefore low which is an additional cardiac risk factor, and his LDL cholesterol could not be calculated due to the high triglyceride level. I have ordered a direct LDL level. Statin therapy will likely be indicated. Lifestyle modification recommended as chronic alcohol ingestion can contribute to high lipids. Family history of ischemic heart disease noted, as well as further cardiac risk factors of cigarette smoking. Cough-chest x-ray negative for acute chest pathology. D-dimer screen was negative. Patient denies fevers or chills, therefore I do not think his symptoms are suggestive of influenza. Resting echocardiogram and stress echocardiogram will be helpful for further evaluation of both his symptoms of exertional shortness of breath and chest pain. History of Present Illness Attending Physician: Kenan Sweeney MD History of Present Illness Tay Perez is a 44-year-old male seen in cardiology consultation per the re quest of Dr. White for the evaluation of chest discomfort. The patient describes onset of left-sided chest discomfort, shortness of breath, and tingling of the left face and shoulder at 7 PM last night. This occurred while he was resting at home with his family, and having a few drinks. The discomfort persisted it was concerning enough that he called EMS, discomfort was relieved with nitroglycerin x2 administered by EMS. He has since rested well overnight without recurrence of chest discomfort. During my interview the patient he was chest pain-free, but did exhibit a significant nonproductive cough which she states is been present for 2 days. He denies any fevers or chills, he denies any reproduction of the chest pain with cough. Family History: Patient states his mother at age 56 due to complications of heart disease. He states that she during a surgery, details of the specifics unknown to patient. Social History: He currently smokes 2 packs of cigarettes per day. 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 Past Medical History: Past history of both hypertension and dyslipidemia. He is not taking medications at present for either Allergies Allergy/AdvReac Type Severity Reaction Status Date / Time naproxen Allergy Intermediate hives Verified 03/08/19 23:40 gabapentin Allergy Mild hives Verified 03/08/19 23:40 aluminum Allergy Unknown CELLULITIS Verified 03/08/19 23:40 diphtheria toxoid,fluid Allergy Unknown CELLULITIS Verified 03/08/19 23:40 Penicillins Allergy Unknown RASH Verified 03/08/19 23:40 Pertussis Vaccines Allergy Unknown CELLULITIS Verified 03/08/19 23:40 tetanus toxoid, adsorbed Allergy Unknown CELLULITIS Verified 03/08/19 23:40 tramadol Allergy Unknown HIVES Verified 03/08/19 23:40 Phenoxyethanol Allergy Unknown CELLULITIS Uncoded 03/08/19 23:40 Home Medications Home Medications Medication Instructions Recorded Confirmed Type No Known Home Medications 10/09/19 10/09/19 History Patient History Surgical History (Updated 05/12/19 @ 13:04 by Pedro Boykin) History of decompression of both ulnar nerves Social History (Updated 10/02/19 @ 01:13 by Kristal Boston) Preferred Language: British Communication Ability: Effective Clothing Pattern Preparer Required: No Beliefs That Will Affect Care: None marital status: Single Current Living Situation: Significant Other current occupational status: employed Other Information That Helps Us Care for You: No Feels Safe at Home: Yes Safety Concerns: Feels Safe At This Time Smoking Status: Heavy tobacco smoker Tobacco Type: cigarettes ; Cigarettes Per Day: 40 ; Hx Alcohol Use: Yes Alcohol type: beer Hx Substance Use: No Review of Systems Review of Systems: All systems reviewed & are unremarkable except as noted in HPI & below Respiratory: Shortness of breath for the last 3 weeks, he states he is been unable to walk up a flight of stairs. Cardiovascular: as per Subjective / HPI Physical Exam Physical Exam: Temp Pulse Resp BP Pulse Ox 36.9 C 67 16 125/85 95 10/09/19 07:29 10/09/19 07:29 10/09/19 07:29 10/09/19 07:29 10/09/19 07:29 Constitutional: WD/WN, vitals as above Respiratory: normal respiratory effort, lungs clear to auscultation Positive cough Cardiovascular: RRR, no murmur, no edema Heart Sounds: no murmur Vessels: no JVD Gastrointestinal (Abdomen): normal bowel sounds, soft, nontender, no hepatosplenomegaly Skin: Multiple piercings and tattoos noted Neurologic: PERRL, EOMI, accommodation nl, no face palsy, no dysarthria Results & Data Vital Signs (Past 12 Hours) Vital Signs Temp Pulse Pulse Resp BP BP Pulse Ox 10/09/19 07:29 36.9 C 67 16 125/85 95 10/09/19 07:00 74 10/09/19 04:40 98 H 10/09/19 03:08 36.4 C L 86 16 147/91 H 95 10/09/19 02:30 82 23 121/85 96 10/09/19 02:00 97 H 16 117/66 10/09/19 01:30 96 H 24 126/94 10/09/19 01:00 97 H 19 101/77 93 10/09/19 00:30 89 21 101/64 94 10/09/19 00:16 92 H 16 117/74 96 10/08/19 23:39 95 10/08/19 23:15 36.7 C 107 H 22 133/65 95 10/08/19 23:13 107 H 16 133/65 95
--- NOTE | 2019-10-09 12:51 | Electrocardiogram Report ---
Test Reason : Blood Pressure : / mmHG Vent. Rate : 106 BPM Atrial Rate : 106 BPM P-R Int : 154 ms QRS Dur : 084 ms QT Int : 342 ms P-R-T Axes : 033 020 042 degrees QTc Int : 454 ms Sinus tachycardia Otherwise normal ECG When compared with ECG of 18-JUL-2018 23:43, No significant change was found Confirmed by Chico Cohn ([id number]) on 10/09/2019 12:51:32 PM Referred By: REFERRED SELF Confirmed By:Chico Cohn
[2019-10-09 15:23] LABS: Influenza A virus by PCR Neg for Influ A (Neg); Influenza B virus by PCR Neg for Influ B (Neg)
[2019-10-09] MEDS ORDERED: ALBUTEROL 0.083% NEBU SOLN 3 ML VIAL NEB PRN (16:01)
--- NOTE | 2019-10-09 16:28 | Hospitalist Progress Note ---
Date of Service October 09, 2019 Assessment & Plan (1) Chest pain: Chest Pain CXR: Negative chest. 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 Jessicanox subcu Full code Subjective Patient is seen and examined at bedside Complains of significant dyspnea on exertion Also reports dry cough Chest pain resolved Had negative stress test today Denies any dizziness, nausea, abdominal pain Discussed with cardiology today Review of Systems Review of Systems: All systems reviewed & are unremarkable except as noted in HPI & below Physical Exam Physical Exam: Physical Exam: Vitals signs as noted above General Appearance:Moderately built and nourished, no apparent distress Head: normocephalic, Atraumatic Eyes: normal inspection, EOMI Neck: supple, Trachea midline Respiratory/Chest: Decreased breath sounds, CTA, No accessory muscle use Cardiovascular: S1, S2, No murmur Abdomen/GI:Soft, Non tender, Bowel sounds present Extremities/Musculoskelatal:normal inspection, no edema Neurologic/Psych:AAOX3, grossly no focal neurological deficits Skin: normal color, warm, Multiple Piercing and Tattooed Results & Data Vital Signs (Past 12 Hours) Vital Signs Temp Pulse Pulse Resp BP Pulse Ox 10/09/19 15:30 36.9 C 83 18 166/98 H 98 10/09/19 12:23 37.0 C 79 18 146/90 H 96 10/09/19 07:29 36.9 C 67 16 125/85 95 10/09/19 07:00 74 10/09/19 04:40 98 H Laboratory Results Short CBC 10/08/19 10/09/19 Range/Units 23:18 04:18 WBC 9.19 7.20 (4.8-10.8) K/uL Hgb 16.5 14.3 (14.0-18.0) g/dL Hct 46.1 40.9 L (42-52) % Plt Count 310 267 (130-400) K/uL BMP 10/08/19 10/09/19 23:18 04:18 Sodium 141 140 Potassium 3.7 4.1 Chloride 108 H 110 H Carbon Dioxide 23 26 BUN 9 15 D Creatinine 1.05 0.94 Glucose 113 H 98 Calcium 8.9 8.4 L Cardiac Enzymes 10/08/19 10/09/19 Range/Units 23:18 04:18 Troponin I < 0.015 < 0.015 (0-0.045) ng/ml Liver Function 10/08/19 10/09/19 Range/Units 23:18 04:18 Total Bilirubin 0.4 0.2 (0.2-1) mg/dl AST 24 22 (15-37) U/L ALT 38 35 (12-78) U/L Alkaline Phosphatase 140 H 123 H (45-117) U/L Albumin 3.8 3.3 L (3.4-5.0) gm/dl Urine 10/09/19 Range/Units 00:15 Urine Color Yellow Urine Appearance Clear (Clear) Urine pH 5.0 (4.5-7.5) Ur Specific [place] 1.017 (1.000-1.030) Urine Protein Negative (Negative) Urine Glucose (UA) Negative (Negative)
[2019-10-09] MEDS ORDERED: FOLIC ACID 1 MG TAB PO SCH (16:30)
[2019-10-09] MEDS ORDERED: THIAMINE HCL 100 MG TAB PO SCH (16:30)
[2019-10-09] MEDS ORDERED: DOXYCYCLINE HYCLATE 100 MG CAP PO SCH (18:00)
[2019-10-09] MEDS ORDERED: BENZONATATE 100 MG CAPSULE PO SCH (21:00)
--- NOTE | 2019-10-09 21:39 | Communication Note ---
Date of Service: October 09, 2019 Made aware by RN of patient decision to leave hospital tonight. Patient unwilling to wait for undersigned provider currently doing ER admission to talk about concerns. Patient signed AMA form. Will relay to AM provider.
--- NOTE | 2019-10-10 07:36 | Discharge Summary ---
Date of Service October 10, 2019 Admission HPI Per Admitting Provider History obtained from patient and records. Medical history significant for palpitations as per records, hyperlipidemia, mood disorder as per records, past alcohol abuse, ongoing tobacco abuse, medication noncompliance. Recent confinement June 2017 for chest pain attributed to stress/anxiety. Patient seen at the ER last week for dehydration/gastroenteritis. Symptoms resolved. Last night, patient experienced achy intense substernal pain radiating to the left shoulder with S OB and diaphoreses. No cough, no abdominal pain, no nausea/emesis symptoms. Discomfort relieved by aspirin and nitroglycerin admi nistration by EMS. Patient has not been taking home BP and cholesterol meds the last few years because "he has not been doctoring." Patient currently comfortable. MEDICAL HISTORY: As above. SURGERIES: He has had knee surgery, urologic procedures upper arm and elbow surgery. FAMILY HISTORY: Heart disease. 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 Exam Per Admitting Provider GENERAL: Comfortable, pleasantly intoxicated, no respiratory distress SKIN: Normal color, warm, multiple tattoos on extremities HEENT: Damar palpebral conjunctivae, no ptosis, dry buccal mucosa NECK : Supple, no tenderness CHEST : CTA, no tenderness HEART : RRR, no obvious murmurs ABDOMEN: Some distention, nontender EXTREMITIES : No LE swelling/tenderness, no other conspicuous deformities noted NEUROLOGIC : Coherent, no facial asymmetry, no other gross focality Principal Diagnosis Chest Pain Acute Bronchitis Hypertension Hyperlipidemia Discharge Data Allergies Allergy/AdvReac Type Severity Reaction Status Date / Time naproxen Allergy Intermediate hives Verified 03/08/19 23:40 gabapentin Allergy Mild hives Verified 03/08/19 23:40 aluminum Allergy Unknown CELLULITIS Verified 03/08/19 23:40 diphtheria toxoid,fluid Allergy Unknown CELLULITIS Verified 03/08/19 23:40 Penicillins Allergy Unknown RASH Verified 03/08/19 23:40 Pertussis Vaccines Allergy Unknown CELLULITIS Verified 03/08/19 23:40 tetanus toxoid, adsorbed Allergy Unknown CELLULITIS Verified 03/08/19 23:40 tramadol Allergy Unknown HIVES Verified 03/08/19 23:40 Phenoxyethanol Allergy Unknown CELLULITIS Uncoded 03/08/19 23:40 Consultations 10/09/19 01:31 ED Decision to Admit Stat 10/09/19 03:06 Consult Cardiology Routine Procedures Performed CXR: Negative chest. Hospital Course (1) Chest pain: Chest Pain CXR: Negative chest. 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 Thiamine, Folic acid Ativan PRN Prediabetes Hb A1C: 5.8 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 DVT Px: Lovenox SQ Code Status Full Code Disposition Patient left Against Medical Advise Total Time Total Time Spent Total Time Spent (In Minutes): 10 Discharge Plan Discharge Items Patient Disposition: Against Medical Advice Reason For Visit: CP Follow-up/Referrals: Blake Hummel MD [Primary Care Provider] - Stand-Alone Forms: Call Back Authorization, [facility], Smoking Cessation Medications and DC Order Prescriptions: No Action No Known Home Medications RF: 0 Discharge Orders: Left Against Medical Advice (Routine); Ordered 10/09/19 Ordered By: Kaleb Garvin Admission Data Admit Date/Time: 10/09/19 02:14 Attending Provider: Kenan Sweeney Admit Provider: Kaleb Garvin Primary Care Provider: Blake Hummel Other Providers: Kaleb Garvin ; Jameson Pink Other Interventions: Discharge Summary Assessment (RN) Last Done: 10/09/19 21:30 DC Date/Time DO NOT enter until pt leaves facility: 10/09/19 21:30
[2019-10-10] MEDS ORDERED: PRAVASTATIN SOD 10 MG TAB PO SCH (09:00)
[2019-10-10] MEDS ORDERED: METOPROLOL TARTRATE 25 MG TAB PO SCH (09:00)
[2019-10-10] MEDS ORDERED: PRAVASTATIN SOD 40 MG TAB PO SCH (09:00)
[2019-10-10] MEDS ORDERED: METOPROLOL SUCC 25MG EXT REL TAB PO SCH (09:00)
== END 2019-10-09 21:30 | disposition left against medical advice (07) ==
LOC: 2S 23:07 → ED 23:07 → 2S 10-09 02:53